=== PATIENT | female | born 1985 | race Caucasian/White ===

== ENCOUNTER 2017-03-26 07:00 | Day surgery (SDC) | payer BC ==
[2017-03-25 16:27] VITALS: BMI 28.3
[2017-03-26] MEDS ORDERED: LIDOCAINE HCL/PF 2% SDV 5ML VIAL ONE (07:41)
[2017-03-26] MEDS ORDERED: MIDAZOLAM HCL 2 MG/2 ML SINGLE DOSE VIAL ONE (07:42)
[2017-03-26] MEDS ORDERED: PROPOFOL 20 ML ONE (07:42)
[2017-03-26] MEDS ORDERED: IBUPROFEN 800 MG/8 ML IJ IVPB PRN (07:47)
[2017-03-26] MEDS ORDERED: oxyCODONE HCL 5 MG TABLET PO PRN ×2 (07:47→08:40)
[2017-03-26] MEDS ORDERED: ONDANSETRON 4 MG/2 ML VIAL IVPUSH PRN (07:47)
[2017-03-26] MEDS ORDERED: LEVOFLOXACIN 500 MG PREMIX BAG IVPB ONE (07:58)
[2017-03-26] MEDS ORDERED: LACTATED RINGERS SOLUTION 1,000 ML IV SCH (08:00)
[2017-03-26] MEDS ORDERED: LEVOFLOXACIN 500 MG IVPB 500 MG/100 ML BAG IVPB ONE (08:06)
--- NOTE | 2017-03-26 08:43 | OP ---
Operative Note - Note: Operative Date: 03/26/17 Pre-Operative Diagnosis: rt UVJ stone Operation: cysto/retrograde/rt ureteroscopy/ureteral dilation/stent placement Findings: stricture rt distal ureter and rt UPJ stenosis Post-Operative Diagnosis: Other Surgeon: Francisco Javier Engel Anesthesiologist/PORTABLE MACHINE CUTTER: Jessica Gomez Anesthesia: General Estimated Blood Loss (mls): 0 Drains & Tubes with Location: 7fr, 24cm stent Operative Report Dictated: Yes
[2017-03-26] MEDS ORDERED: ELECTROLYTE-148 SOLN 1,000 ML IV SCH (08:45)
--- NOTE | 2017-03-26 09:53 | OP ---
DATE OF OPERATION: DATE OF DICTATION: 03/26/2017 PREOPERATIVE DIAGNOSIS: Right distal ureteral stone. 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 PROCEDURE PERFORMED: Cystoscopy, retrograde pyelogram, ureteroscopy, ureteral dilation and stent placement. SURGEON: Francisco Javier Engel MD INDICATIONS: The patient is a 32-year-old female with persistent right hydronephrosis secondary to a possible right distal ureteral stone on CT scan. She was taken to the OR for diagnostic ureteroscopy and treatment. The risks, benefits and alternatives were discussed. DESCRIPTION OF PROCEDURE: After informed consent was obtained, the patient was taken to the OR and placed supine on the table. After cardiac monitoring was administered, general anesthesia was established. She was prepped and draped in the dorsal lithotomy position. The 22 sheath and cystoscope were inserted without difficulty. The urethra was normal. The bladder was visualized. No tumors or stones were noted in the bladder. Attention was turned to the right ureteral orifice. This was intubated with a ureteral catheter and contrast was injected for a retrograde pyelogram. There was moderate to severe hydronephrosis. No stone or filling defect was noted. A guidewire was advanced into the right renal pelvis. Alongside the guidewire, a rigid ureteroscope was advanced. The scope was advanced just into the ureterovesical junction area, at which point the ureter was narrowed. Then the scope was gently maneuvered to bypass the narrowing, thereby stretching the ureter. In the strictured ureteral area, however, no stone was noted. The scope was then advanced to the mid-ureter and no other stone was seen. At this point the rigid ureteroscope was removed. A second guidewire was advanced, and over the second guidewire a flexible ureteroscope was advanced into the kidney. The kidney was inspected. It was moderately to severely dilated. No stones were noted in the kidney. When the flexible ureteroscope was being drawn out of the collecting system, right at the UPJ there was a stenotic ureter, indicating stricture at both the UPJ area and the UVJ area. Again, the entire ureter was inspected and no stones were noted. The ureteroscope was then removed and a 7-Mosotho 24-cm double pigtail stent was then advanced in a monorail fashion. Fluoroscopy confirmed the stent being in good position. The patient was then awoken from anesthesia and transferred to the recovery room in stable condition. There were no complications. Estimated blood loss was minimal. [place] SHIELDS/[id number]
[2017-03-26 10:27] VITALS: TEMP 98
[2017-03-26] MEDS ORDERED: oxyCODONE HCL 5 MG TABLET ONE (11:00)
[2017-03-26 12:40] VITALS: BP 133/91; PULSE 74
== END 2017-03-26 12:43 | disposition home or self-care (01) ==
LOC: JASU-SURG 07:00
PROVIDERS: ATTEND Urology
PROC: 0T768DZ Dilation of Right Ureter with Intraluminal Device, Via Natural or Artificial Opening Endoscopic (ICD-10-PCS; principal; 2017-03-26 07:30)
PROC: 0T768DZ Dilation of Right Ureter with Intraluminal Device, Via Natural or Artificial Opening Endoscopic (ICD-10-PCS; 2017-03-26 07:30)
DX: N13.5 Crossing vessel and stricture of ureter without hydronephrosis (principal)
CPT/HCPCS: 76000-TC; 84703; 94760

== ENCOUNTER 2017-12-04 02:06 | Emergency (ER) | payer BC, OTHER ==
[2017-12-04 02:19] VITALS: BP 124/80; PULSE 81; TEMP 98.4; BMI 26.5
[2017-12-04] MEDS ORDERED: SODIUM CHLORIDE 1,000 ML IV STA (02:59)
[2017-12-04 03:12] LABS: BASO % 1.4 % (0-2.0); EOS % 1.7 % (0-4.5); HEMOGLOBIN 12.8 GM/dL (10.7-15.3); LYMPH % 22.7 % (8-40); MCH 27.9 pg (25.7-33.7); MEAN CELL VOLUME 84.6 fl (80-96); MEAN PLT VOLUME 7.7 fl (7.5-11.1); MONO % 6.3 % (3.8-10.2); NEUT % 67.9 % (42.8-82.8); PLATELET COUNT 346 K/MM3 (134-434); RBC 4.61 M/mm3 (3.60-5.2); RDW 14.3 % (11.6-15.6); WHITE BLOOD COUNT 9.2 K/mm3 (4.0-10.0)
[2017-12-04] MEDS ORDERED: ACETAMINOPHEN 1000 MG/100 ML VIAL (NON FORMULARY) IVPB ONE (03:14)
--- NOTE | 2017-12-04 03:14 | PDOC ---
History of Present Illness - History of Present Illness Initial Comments: 12/04/17 03:35 The patient is a 32 year old female, with a significant past medical history of right lower extremity DVT (09/2017 on Xeralto), who presents to the emergency department with, 2 days of chest pain and shortness of breath. She describes her chest pain as gradual onset and pleuritic. She reports an associated headache which she took Tylenol with relief. She denies recent fevers, chills, or dizziness. She denies recent nausea, vomit , diarrhea or constipation. She denies recent dysuria, frequency, urgency or hematuria. Allergies: NKA Past surgical history Cholecystectomy. Social history: Nonsmoker. Denies EtOH use and recreational drug use. <Melba Montero - Last Filed: 12/04/17 06:15> - General History Source: Patient Exam Limitations: No Limitations <Maldonado Isaac - Last Filed: 12/04/17 06:48> - General Chief Complaint: Chest Pain Stated Complaint: CHEST PAIN Time Seen by Provider: 12/04/17 02:51 Past History <Melba Montero - Last Filed: 12/04/17 06:15> - Past Medical History Anemia: No Asthma: No Cancer: No COPD: No CHF: No GI Disorders: No Disorders: Yes (STONES) HTN: No Hypercholesterolemia: No Liver Disease: No Seizures: No Thyroid Disease: No - Surgical History Cholecystectomy: Yes - Immunization History Immunization Up to Date: Yes - Suicide/Smoking/Psychosocial Hx Smoking Status: No Smoking History: Unknown if ever smoked Have you smoked in the past 12 months: No Number of Cigarettes Smoked Daily: 0 Hx Alcohol Use: No Drug/Substance Use Hx: No Substance Use Type: None Hx Substance Use Treatment: No <Maldonado Isaac - Last Filed: 12/04/17 06:48> - Past Medical History Allergies/Adverse Reactions: Allergies Allergy/AdvReac Type Severity Reaction Status Date / Time No Known Allergies Allergy Verified 12/04/17 04:26 Home Medications: Ambulatory Orders Cyanocobalamin [Vitamin B12 -] 1,000 mcg PO DAILY 03/25/17 Naproxen 500 mg PO BID PRN #20 tablet 12/04/17 Review of Systems - Review of Systems Able to Perform ROS?: Yes Comments:: 12/04/17 03:37 GENERAL/CONSTITUTIONAL: No fever or chills. No weakness. HEAD, EYES, EARS, NOSE AND THROAT: No change in vision. No ear pain or discharge. No sore throat. +CARDIOVASCULAR: Chest pain and shortness of breath. RESPIRATORY: No cough, wheezing, or hemoptysis. GASTROINTESTINAL: No nausea, vomiting, diarrhea or constipation. GENITOURINARY: No dysuria, frequency, or change in urination. MUSCULOSKELETAL: No joint or muscle swelling or pain. No neck or back pain. SKIN: No rash NEUROLOGIC: No headache, vertigo, loss of consciousness, or change in strength/ sensation. ENDOCRINE: No increased thirst. No abnormal weight change. HEMATOLOGIC/LYMPHATIC: No anemia, easy bleeding, or history of blood clots. ALLERGIC/IMMUNOLOGIC: No hives or skin allergy. All Other Systems: Reviewed and Negative <Melba Montero - Last Filed: 12/04/17 06:15> *Physical Exam - Vital Signs Last Vital Signs Temp Pulse Resp BP Pulse Ox 98.4 F 81 20 124/80 99 12/04/17 02:15 12/04/17 02:15 12/04/17 02:15 12/04/17 02:15 12/04/17 02:15 - Physical Exam Comments: 12/04/17 03:44 GENERAL: Awake, alert, and fully oriented, in no acute distress HEAD: No signs of trauma EYES: PERRLA, EOMI, sclera anicteric, conjunctiva clear ENT: Auricles normal inspection, hearing grossly normal, nares patent, oropharynx clear without exudates. Moist mucosa NECK: Normal ROM, supple, no lymphadenopathy, JVD, or masses LUNGS: Breath sounds equal, clear to auscultation bilaterally. No wheezes, and no crackles HEART: Regular rate and rhythm, normal S1 and S2, no murmurs, rubs or gallops ABDOMEN: Soft, nontender, normoactive bowel sounds. No guarding, no rebound. No masses EXTREMITIES: Normal range of motion, no edema. No clubbing or cyanosis. No cords, erythema, or tenderness NEUROLOGICAL: Cranial nerves II through XII grossly intact. Normal speech, normal gait SKIN: Warm, Dry, normal turgor, no rashes or lesions noted. <Melba Montero - Last Filed: 12/04/17 06:15> - Vital Signs Last Vital Signs Temp Pulse Resp BP Pulse Ox 98.4 F 81 20 124/80 99 12/04/17 02:15 12/04/17 02:15 12/04/17 02:15 12/04/17 02:15 12/04/17 02:15 <Maldonado Isaac - Last Filed: 12/04/17 06:48> Heart Score/ECG Review #1 ECG reviewed & interpreted by me at: 02:15 12/04/17 03:18 NSR 77, incomplete RBBB, no std/vera, QTC 434 msec <Maldonado Isaac - Last Filed: 12/04/17 06:48> ED Treatment Course - LABORATORY CBC & Chemistry Diagram: 12/04/17 03:00 12/04/17 03:00 - ADDITIONAL ORDERS Additional order review: Laboratory Results 12/04/17 03:00 INR 1.34 H PTT (Actin FS) 34.0 12/04/17 03:00 RBC 4.61 MCV 84.6 MCHC 33.0 RDW 14.3 MPV 7.7 Neutrophils % 67.9 Lymphocytes % 22.7 D Monocytes % 6.3 Eosinophils % 1.7 Basophils % 1.4 - RADIOLOGY Radiograph Interpretation: 12/04/17 06:15 EXAM: CTA CHEST 1 cm nodule or nodular scar right lower lobe, advise followup. No pulmonary embolism. No aortic dissection or aneurysm. No pneumonia or pleural effusions. Anterior mediastinal soft tissue, probably thymic. Cholecystectomy. Read by: Елена Goyal M.D. <Melba Montero - Last Filed: 12/04/17 06:15> - LABORATORY CBC & Chemistry Diagram: 12/04/17 03:00 12/04/17 03:00 - RADIOLOGY Radiology Studies Ordered: Category Date Time Status CHEST CTA [CT] Stat CT Scan 12/04/17 02:58 Ordered <Maldonado Isaac - Last Filed: 12/04/17 06:48> Medical Decision Making - Medical Decision Making 12/04/17 03:12 A portion of this note was written by my scribe, under my supervision. Vital Signs Temp Pulse Resp BP Pulse Ox 98.4 F 81 20 124/80 99 12/04/17 02:15 12/04/17 02:15 12/04/17 02:15 12/04/17 02:15 12/04/17 02:15 32 year old female with history of RLE DVT on xarelto p/w chest pain and SOB since yesterday. Pt started to notice a difficult to describe chest pain with SOB. Not pleuritic. Denies fevers, chills, cough, vomiting. States that she's adherent to her xarelto. Denies nausea, vomiting, abdominal pain. States does not feel like acid reflux. Came in for an eval. Will need to r/o PE. CTA to r/o PE. Labs including troponin. Reassess. 12/04/17 06:37 CT shows: 1 cm nodule or nodular scar right lower lobe. no PE, no dissection, No pneumonia. 12/04/17 06:45 CBC, BMP 12/04/17 03:00 12/04/17 03:00 CMP Sodium 139 mmol/L (136-145) 12/04/17 03:00 Potassium 4.2 mmol/L (3.5-5.1) 12/04/17 03:00 Chloride 104 mmol/L (98-107) 12/04/17 03:00 Carbon Dioxide 29 mmol/L (21-32) 12/04/17 03:00 Anion Gap 6 (8-16) L 12/04/17 03:00 BUN 10 mg/dL (7-18) 12/04/17 03:00 Creatinine 0.8 mg/dL (0.55-1.02) 12/04/17 03:00 Creat Clearance w eGFR > 60 (>60) 12/04/17 03:00 Random Glucose 84 mg/dL (74-106) 12/04/17 03:00 Calcium 8.7 mg/dL (8.5-10.1) 12/04/17 03:00 Total Bilirubin 0.2 mg/dL (0.2-1.0) 12/04/17 03:00 AST 19 U/L (15-37) 12/04/17 03:00 ALT 22 U/L (12-78) 12/04/17 03:00 Alkaline Phosphatase 74 U/L (45-117) 12/04/17 03:00 Creatine Kinase 53 IU/L (26-192) 12/04/17 03:00 Troponin I < 0.02 ng/ml (0.00-0.05) 12/04/17 03:00 B-Natriuretic Peptide 66.03 pg/ml (5-125) 12/04/17 03:00 Total Protein 7.1 g/dl (6.4-8.2) 12/04/17 03:00 Albumin 3.5 g/dl (3.4-5.0) 12/04/17 03:00 Serum , Qual Negative 12/04/17 03:00 Pt feels reassurred. She was given a copy of her results. I advised her on the nodule and that she will likely need a follow up outpatient chest imaging with her doctor. Pt will take the results to her doctor. Will treat as atypical chest pain at the moment. <Maldonado Isaac - Last Filed: 12/04/17 06:48> *DC/Admit/Observation/Transfer - Attestations Scribe Attestion: 12/04/17 03:37 Documentation prepared by Melba Montero, acting as manager medical writing for Maldonado Isaac MD. <Melba Montero - Last Filed: 12/04/17 06:15> <Maldonado Isaac - Last Filed: 12/04/17 06:48> Diagnosis at time of Disposition: Atypical chest pain - Discharge Dispostion Disposition: HOME Condition at time of disposition: Stable - Prescriptions Prescriptions: Naproxen 500 mg PO BID PRN #20 tablet PRN Reason: Pain - Patient Instructions Printed Discharge Instructions: DI for Atypical Chest Pain Additional Instructions: Your CT scan shows no blood clot. However, there may be a small nodule in your right lung. Please give the copy of the CT results to your doctor. Your doctor should track this along with you. Take 500 mg naproxen every 12 hours as needed for pain. Please call your doctor and schedule a follow up appointment.
[2017-12-04] MEDS ORDERED: ACETAMINOPHEN INJECTION 100 ML IVPB ONE (03:26)
[2017-12-04 03:29] LABS: INR 1.34 (0.82-1.09)
[2017-12-04 03:38] LABS: ALBUMIN 3.5 g/dl (3.4-5.0); ANION GAP 6 (8-16); BILIRUBIN,TOTAL 0.2 mg/dL (0.2-1.0); BLOOD UREA NITROGEN 10 mg/dL (7-18); CALCIUM 8.7 mg/dL (8.5-10.1); CHLORIDE 104 mmol/L (98-107); CO2 29 mmol/L (21-32); CREATININE 0.8 mg/dL (0.55-1.02); GLUCOSE,RANDOM 84 mg/dL (74-106); POTASSIUM 4.2 mmol/L (3.5-5.1); SGOT/AST 19 U/L (15-37); SGPT/ALT 22 U/L (12-78); SODIUM 139 mmol/L (136-145); TOT PROT 7.1 g/dl (6.4-8.2)
[2017-12-04 03:41] LABS: ALK PHOS 74 U/L (45-117); N-TERMINAL BNP 66.03 pg/ml (5-125)
[2017-12-04] MEDS ORDERED: KETOROLAC TROMETHAMINE 15 MG/ML VIAL IVPUSH ONE (06:44)
[2017-12-04 06:52] LABS: PROTHROMBIN TIME (PATIENT) 15.1 SEC (9.7-13.0)
--- NOTE | 2017-12-06 10:42 | EKG ---
Test Reason : Blood Pressure : / mmHG Vent. Rate : 077 BPM Atrial Rate : 077 BPM P-R Int : 166 ms QRS Dur : 096 ms QT Int : 384 ms P-R-T Axes : 042 030 022 degrees QTc Int : 434 ms NORMAL SINUS RHYTHM INCOMPLETE RIGHT BUNDLE BRANCH BLOCK ABNORMAL ECG WHEN COMPARED WITH ECG OF 17-NOV-2016 10:10, INCOMPLETE RIGHT BUNDLE BRANCH BLOCK IS MORE EVIDENT Confirmed by AGUEDA WALLACE MD ([id number]) on 12/06/2017 10:42:10 AM Referred By: Confirmed By:AGUEDA WALLACE MD
== END 2017-12-04 07:22 | disposition home or self-care (01) ==
LOC: JER 02:06
PROC: 3E0337Z Introduction of Electrolytic and Water Balance Substance into Peripheral Vein, Percutaneous Approach (ICD-10-PCS; principal; 2017-12-04)
PROC: 3E033GC Introduction of Other Therapeutic Substance into Peripheral Vein, Percutaneous Approach (ICD-10-PCS; 2017-12-04)
DX: R07.9 Chest pain, unspecified (principal); Z86.718 Personal history of other venous thrombosis and embolism; Z79.01 Long term (current) use of anticoagulants
CPT/HCPCS: 36415; 71275-TC; 80053; 82550; 83880; 84484; 84703; 85025; 85610; 85730; 93005; 93010; 99284-25; J7030

== ENCOUNTER 2019-03-19 17:44 | Inpatient (IN) | payer BC, OTHER ==
--- NOTE | 2019-03-19 17:58 | PDOC ---
History of Present Illness - General Chief Complaint: SIRS, Suspected/Possible Stated Complaint: SENT BY URGENT CARE Time Seen by Provider: 03/19/19 17:58 History Source: Patient Exam Limitations: No Limitations - History of Present Illness Initial Comments: 34 year old female with PMH right ureter stricture, nephrolithiasis, right ureter stent (now removed), multiple UTIs sent to ED from urgent care today for right flank pain and fever x4-5 days. Pt reported nausea, vomiting. Pt has been taking Tylenol for fever/pain, but fever always returns, last took Tylenol around 1200 today. Pt reported she was prescribed Clindamycin over the phone by her OBGYN x4-5 days ago when she called to reported her symptoms, but her symptoms have not improved since starting the medication. Past History - Past Medical History Allergies/Adverse Reactions: Allergies Allergy/AdvReac Type Severity Reaction Status Date / Time Cephalosporins Allergy Verified 03/19/19 17:51 Penicillins Allergy Verified 03/19/19 17:51 Home Medications: Ambulatory Orders Aspirin [ASA -] 325 mg PO BID 03/20/19 Vitamin Tablet 1 tab PO DAILY 03/20/19 Anemia: No Asthma: No Cancer: No COPD: No CHF: No GI Disorders: No Disorders: Yes (STONES) HTN: No Hypercholesterolemia: No Liver Disease: No Seizures: No Thyroid Disease: No - Surgical History Cholecystectomy: Yes - Immunization History Immunization Up to Date: Yes - Psycho Social/Smoking Cessation Hx Smoking Status: No Smoking History: Never smoked Have you smoked in the past 12 months: No Number of Cigarettes Smoked Daily: 0 Hx Alcohol Use: No Drug/Substance Use Hx: No Substance Use Type: None Hx Substance Use Treatment: No Review of Systems - Review of Systems Able to Perform ROS?: Yes Comments:: ROS General: admitted to fever, generalized weakness. HEENT: denied sore throat, rhinorrhea, ear pain. Cardiovascular: denied chest pain, palpitations, syncope, diaphoresis. Respiratory: denied shortness of breath, cough, sputum production, hemoptysis. Gastrointestinal: denied abdominal pain, nausea, vomiting, diarrhea, constipation, blood in stool. Genitourinary: admitted to flank pain. denied dysuria, increased urinary frequency, hematuria, urinary incontinence. Back: denied back pain. Musculoskeletal: denied joint pain, muscle pain, joint swelling. Neurological: denied headache, dizziness, numbness, tingling, weakness. Integumentary: denied rash, laceration, abrasion. Hematologic/Lymphatic: denied bruising or bleeding. PE Constitutional: Well-nourished, Well-developed, appearing stated age. HEENT: head is normocephalic, atraumatic. EOMI. PERRLA. no posterior pharyngeal erythema.no tonsillar swelling or exudates bilaterally. uvula midline. no peritonsillar swelling, tenderness or abscess. no jaw tenderness or misalignment. Neck: supple. Full ROM. Cardiovascular: regular heart rhythm. no murmurs. no pericardial friction rub. Respiratory: clear to auscultation bilaterally. no crackles, rhonchi or wheezing. no stridor. Gastrointestinal: soft, nontender. normal bowel sounds. no rebound, guarding, masses. Back: no rash. negative CVA tenderness bilaterally. Extremities: peripheral pulses intact. no lower extremity edema. Neurological: CN 2-12 grossly intact. moves all four extremities. Psych: awake, alert, oriented x3. follows commands. answers questions appropriately. *Physical Exam - Vital Signs Last Vital Signs Temp Pulse Resp BP Pulse Ox 102.9 F H 111 H 18 135/81 99 03/19/19 17:47 03/19/19 17:47 03/19/19 17:47 03/19/19 17:47 03/19/19 17:47 ED Treatment Course - LABORATORY CBC & Chemistry Diagram: 03/22/19 08:36 03/22/19 08:36 Medical Decision Making - Medical Decision Making 34 year old female with above PMH sent to ED from Urgent Care for right flank pain associated with fever x4-5 days. Pt has been taking Clindamycin ( prescribed by OBGYN after phone call) without relief of symptoms. Initial Vital Signs Temp Pulse Resp BP Pulse Ox 102.9 F H 111 H 18 135/81 99 03/19/19 17:47 03/19/19 17:47 03/19/19 17:47 03/19/19 17:47 03/19/19 17:47 Febrile. Tachycardic. No tachypnea. No hypotension. No hypoxia on room air. Labs ordered: CBC, CMP, Mag, Phos, Serum , UA/UC, Imaging ordered: CT abdomen/pelvis with IV contrast Medications ordered: tylenol IV, normal saline bolus 1000 cc once EKG performed at CXR my view: sharp costophrenic angles. no cardiomegaly. no infiltrate. -Pending official report 03/19/19 18:53 Laboratory Results - last 24 hr 03/19/19 03/19/19 03/19/19 18:26 18:26 18:26 WBC 8.0 RBC 4.62 Hgb 12.5 Hct 38.0 MCV 82.1 MCH 27.0 MCHC 32.9 RDW 14.4 Plt Count 300 MPV 7.9 Absolute Neuts (auto) 6.5 Neutrophils % 80.7 Lymphocytes % 9.6 D Monocytes % 8.7 Eosinophils % 0.4 Basophils % 0.6 Nucleated RBC % 0 PT with INR 12.30 INR 1.04 VBG pH 7.40 POC VBG pCO2 36.3 L POC VBG pO2 50.1 H VBG HCO3 22.3 L VBG O2 Sat (Pipe) 84.9 H VBG Base Excess -1.4 No leuckocytosis. No anemia. No acidosis. 03/19/19 19:45 CMP Sodium 134 mmol/L (136-145) L 03/19/19 18:26 Potassium 3.5 mmol/L (3.5-5.1) 03/19/19 18:26 Chloride 103 mmol/L (98-107) 03/19/19 18:26 Carbon Dioxide 23 mmol/L (21-32) 03/19/19 18:26 Anion Gap 9 MMOL/L (8-16) 03/19/19 18:26 BUN 15.7 mg/dL (7-18) 03/19/19 18:26 Creatinine 1.0 mg/dL (0.55-1.3) 03/19/19 18:26 Est GFR (CKD-EPI)AfAm 84.53 03/19/19 18:26 Est GFR (CKD-EPI)NonAf 72.93 03/19/19 18:26 Random Glucose 86 mg/dL (74-106) 03/19/19 18:26 Lactic Acid 1.0 mmol/L (0.4-2.0) 03/19/19 18:26 Calcium 8.8 mg/dL (8.5-10.1) 03/19/19 18:26 Phosphorus 2.3 mg/dL (2.5-4.9) L 03/19/19 18:26 Magnesium 2.0 mg/dL (1.8-2.4) 03/19/19 18:26 Total Bilirubin 0.6 mg/dL (0.2-1) 03/19/19 18:26 AST 12 U/L (15-37) L 03/19/19 18:26 ALT 17 U/L (13-61) 03/19/19 18:26 Alkaline Phosphatase 73 U/L (45-117) 03/19/19 18:26 Total Protein 6.7 g/dl (6.4-8.2) 03/19/19 18:26 Albumin 3.0 g/dl (3.4-5.0) L 03/19/19 18:26 Serum , Qual Negative 03/19/19 18:26 Mild hyponatremia - IVF running. Mild hypophos. No lactic acidosis. No ROSEMARIE. Serum negative. Vital Signs Temperature 102.9 F H 03/19/19 17:47 Pulse Rate 88 03/19/19 19:34 Respiratory Rate 18 03/19/19 19:34 Blood Pressure 107/73 03/19/19 19:34 O2 Sat by Pulse Oximetry (%) 98 03/19/19 19:34 Tachycardia resolved with Tylenol and IVF hydration. Hypertension improved. 03/19/19 20:01 03/19/19 20:05 CT reported pt has contrast allergy - reported has had contrast multiple times and each time she gets a more intense rash. She is refusing the contrast. CT abdomen/pelvis without contrast ordered. 03/19/19 20:34 Urine Test Results Urine Color Yellow 03/19/19 19:28 Urine Appearance Turbid 03/19/19 19:28 Urine pH 6.0 (5.0-8.0) 03/19/19 19:28 Ur Specific [place] 1.031 (1.010-1.035) 03/19/19 19:28 Urine Protein 4+ (NEGATIVE) H 03/19/19 19:28 Urine Glucose (UA) Negative (NEGATIVE) 03/19/19 19:28 Urine Ketones 2+ (NEGATIVE) H 03/19/19 19:28 Urine Blood 3+ (NEGATIVE) H 03/19/19 19:28 Urine Nitrite Negative (NEGATIVE) 03/19/19 19: Urine Bilirubin Negative (NEGATIVE) 03/19/19 19:28 Ur Leukocyte Esterase 2+ (NEGATIVE) H 03/19/19 19:28 WBC>900 Medications ordered: Cipro [address] report: Name: [facility] DEPARTMENT OF RADIOLOGY Phys: Sarika García RESIDENT : [id number] Age: 34 Sex: F [facility] Acct: [id number] Loc: [address] Exam Date: 03/19/19 Status: [place] [address] Unit Number: [id number] EXAM#: TYPE/EXAM: RESULT: [id number] CT/ABDOMEN PELVIS CT W/O CONTR Clinical history: 34-year-old woman with right flank and right lower quadrant pain for 4 days. Nausea and vomiting. Rule out stone disease. Comparison: 03/12/2017. Contiguous transaxial images were obtained from the diaphragmatic domes and pubic symphysis without the administration of oral and IV contrast as a Stone protocol. Sagittal and coronal reconstructions were performed. Lung bases: Atelectatic changes and small posterior right effusion.. Bone: Negative. Liver: Hepatomegaly. Gallbladder: Cholecystectomy. Biliary tree: Negative. Spleen: Splenomegaly. Pancreas: Negative. Adrenals: Negative. Kidneys: The right kidney shows mild atrophy, perirenal stranding and moderately severe hydronephrosis and dilated renal pelvis which is increased compared to the prior study. There is a hydroureter which extends to a possible but not definitive 4.4 mm distal right ureteral stone. Multiple other calcifications are seen in the pelvis which probably are phleboliths in including some which were seen on prior study. The left kidney is negative. Pelvis: Cystic changes in the left ischio rectal fossa as previously. Bowel: Moderately severe retention of stool. Appendix not definitively seen but no inflammatory changes identified in the right lower quadrant. Other: Small hiatal hernia. Small umbilical hernia with fat. Impression: Significantly increased right hydronephrosis post on probable right chronic UPJ obstruction with possible but not definitive stone in the distal ureter. There are multiple other calcifications in the pelvis which likely phleboliths. Other findings as above. Clinical correlation advised. The study was initially read by Gregoryhawjaciel. Reported By: Francisco Javier Mas MD 03/20/19 1203 Pt to be admitted for obstructive uropathy resulting in UTI. 03/22/19 12:49 Discharge - Discharge Information Problems reviewed: Yes Clinical Impression/Diagnosis: Obstructive uropathy, UTI (urinary tract infection) Condition: Stable - Admission Yes - Follow up/Referral - Patient Discharge Instructions - Post Discharge Activity
[2019-03-19] MEDS ORDERED: SODIUM CHLORIDE 1,000 ML IV STA ×2 (18:00→22:26)
[2019-03-19] MEDS ORDERED: ACETAMINOPHEN 1000 MG/100 ML VIAL (NON FORMULARY) IVPB ONE (18:00)
[2019-03-19] MEDS ORDERED: ACETAMINOPHEN INJECTION 100 ML IVPB ONE (18:17)
[2019-03-19 18:46] LABS: BASO % 0.6 % (0-2.0); EOS % 0.4 % (0-4.5); HEMOGLOBIN 12.5 GM/dL (10.7-15.3); LYMPH % 9.6 % (8-40); MCHC 32.9 g/dl (32.0-36.0); MEAN CELL VOLUME 82.1 fl (80-96); MEAN PLT VOLUME 7.9 fl (7.5-11.1); MONO % 8.7 % (3.8-10.2); NEUT % 80.7 % (42.8-82.8); PLATELET COUNT 300 K/MM3 (134-434); RBC 4.62 M/mm3 (3.60-5.2); RDW 14.4 % (11.6-15.6)
[2019-03-19 18:51] LABS: INR 1.04 (0.83-1.09); PROTHROMBIN TIME (PATIENT) 12.3 SEC (9.7-13.0)
[2019-03-19 18:52] LABS: VENOUS PC02 36.3 mmHg (38-52); VENOUS PH 7.4 (7.31-7.41); VENOUS PO2 50.1 mmHg (28-48)
[2019-03-19 18:54] LABS: ACTIVATED PTT 33.5 SECONDS (25.2-36.5)
[2019-03-19 19:17] LABS: PHOSPHOROUS 2.3 mg/dL (2.5-4.9)
[2019-03-19 19:19] LABS: BILIRUBIN,TOTAL 0.6 mg/dL (0.2-1); BLOOD UREA NITROGEN 15.7 mg/dL (7-18); CALCIUM 8.8 mg/dL (8.5-10.1); POTASSIUM 3.5 mmol/L (3.5-5.1); TOT PROT 6.7 g/dl (6.4-8.2)
[2019-03-19 19:56] LABS: EPI CELLS 2.1 /HPF (0-5/HPF); HYALINE CASTS 12 /lpf (0-8); URINE APPEARANCE TURBID; URINE BACTERIA 14.5 /hpf (NEGATIVE); URINE BILIRUBIN NEGATIVE (NEGATIVE); URINE COLOR YELLOW; URINE GLUCOSE (UA) NEGATIVE (NEGATIVE); URINE KETONE 2+ (NEGATIVE); URINE LEUK ESTERASE 2+ (NEGATIVE); URINE NITRITE NEGATIVE (NEGATIVE); URINE PROTEIN 4+ (NEGATIVE); URINE WBC 917 /hpf (0-5)
[2019-03-19] MEDS ORDERED: CIPROFLOXACIN 400 MG/D5W 400 MG/200 ML IVPB IVPB ONE (20:32)
[2019-03-19 20:36] LABS: URINE RBC 95.1 /hpf (0-4); YEAST NONE SEEN (NEGATIVE)
--- NOTE | 2019-03-19 20:49 | PDOC ---
Documentation entered by Sara Napier SCRIBE, acting as scribe for Jose Holland MD. Jose Holland MD: This documentation has been prepared by the amiibe, Sara Napier SCRIBE, under my direction and personally reviewed by me in its entirety. I confirm that the documentation accurately reflects all work, treatment, procedures, and medical decision making performed by me. Attending Attestation - Resident Resident Name: Sarika García - ED Attending Attestation I have performed the following: I have examined & evaluated the patient, The case was reviewed & discussed with the resident, I agree w/resident's findings & plan, Exceptions are as noted - HPI HPI: 03/19/19 20:25 34 F with h/o R ureteral stricture, kidney stones, UTIs, presenting to ED with R flank pain and fever. Pt reports 4-5 days of symptoms. Endorses pain radiating from R flank around her side. Denies abdominal pain. Endorses N/V. Denies vaginal discharge/bleeding. - Physicial Exam PE: 03/19/19 20:26 "GENERAL: Awake, alert, and fully oriented, in no acute distress. HEAD: No signs of trauma EYES: PERRLA, EOMI, sclera anicteric, conjunctiva clear ENT: Auricles normal inspection, hearing grossly normal, nares patent, oropharynx clear without exudates. Moist mucosa NECK: Nontender, no stepoffs, Normal ROM, supple, no lymphadenopathy, JVD, or masses LUNGS: Breath sounds equal, clear to auscultation bilaterally. No wheezes, and no crackles HEART: Regular rate and rhythm, normal S1 and S2, no murmurs, rubs or gallops ABDOMEN: Soft, nontender, normoactive bowel sounds. No guarding, no rebound. No masses EXTREMITIES: Normal range of motion, no edema. No clubbing or cyanosis. No cords, erythema, or tenderness NEUROLOGICAL: Cranial nerves II through XII intact. 5/5 strength and sensation in all extremities, Normal speech, normal gait, normal cerebellar function SKIN: Warm, Dry, normal turgor, no rashes or lesions noted. BACK: + R CVAT - Medical Decision Making 03/19/19 20:28 34 F with fevers, R flank pain. Suspect pyelo. Will also r/o infected stone. - Labs, UA - CTAP - IVF, tylenol 03/19/19 21:50 Labs consistent with UTI CT shows severe R pyelo with periureteral stranding. Possible 7mm stone per IOC read. Pt started on cipro (pen and ceph allergy) Will admit for uro eval
[2019-03-19] MEDS ORDERED: KETOROLAC TROMETHAMINE 30 MG/1 ML VIAL IVPUSH ONE (22:26)
[2019-03-19] MEDS ORDERED: TAMSULOSIN HCL 0.4 MG CAP PO ONE (22:26)
--- NOTE | 2019-03-19 22:43 | PN ---
Teaching Attending Note Name of Resident: Judith Baldwin ATTENDING PHYSICIAN STATEMENT I saw and evaluated the patient. I reviewed the resident's note and discussed the case with the resident. I agree with the resident's findings and plan as documented. SUBJECTIVE: Patient is a 34 year old woman who is 8 weeks and breast feeding, with a PMH of Right ureter stricture, Penicillin allergy, LLE DVT, Nephrolithiasis (prior lithotripsy), Right ureter stent (now removed), and Multiple UTIs sent to ER from Urgent Care today for right flank pain and fever for 4-5 days. Has nausea, constipation and vomiting and has been on Clindamycin for a few days. Has been taking Tylenol for fever/pain, but fever always returns. Last took Tylenol around 1200 today. Denies abnormal vaginal discharge or bleeding. Denies tobacco use, alcohol or illicit drug use. Was on Xarelto for DVT before her , but is now just on Aspirin pending followup with her fretted instruments inspector. OBJECTIVE: Alert Vital Signs Period Temp Pulse Resp BP Sys/Philippe Pulse Ox Last 24 Hr 102.9 F 88-111 18-18 107-135/73-81 98-99 HEENT: No Jaundice, eye redness or discharge, PERRLA, EOMI. Normocephalic, atraumatic. External ears are normal and hearing is grossly intact. No nasal discharge. Neck: Supple, nontender. No palpable adenopathy or thyromegaly. No JVD Chest: Good effort. Clear to auscultation and percussion. Heart: Regular. No S3, rub or murmur Abdomen: Not distended, soft, Right CVAT; RUQ tenderness; no HSM. No rebound or guarding. Normal bowel sounds. Ext: Peripheral pulses intact. No leg edema. Skin: Warm and dry. No petechiae, rash or ecchymosis. Neuro: Alert. Oriented x3. CN 2-12 grossly intact. Sensation grossly intact in all four extremities and DTR are symmetric. Psych: Appropriate mood and affect. Good insight. Current Medications Generic Name Dose Route Start Last Admin Trade Name Freq PRN Reason Stop Dose Admin Sodium Chloride 1,000 mls @ 1,000 mls/hr 03/19/19 22:26 Normal Saline - IV 03/19/19 23:25 ASDIR STA Home Medications Medication Instructions Recorded Cyanocobalamin [Vitamin B12 -] 1,000 mcg PO DAILY 03/25/17 Dabigatran Etexilate Mesylate 75 mg PO ONCE 12/04/17 [Pradaxa -] Naproxen 500 mg PO BID PRN #20 tablet 12/04/17 Abnormal Lab Results 03/19/19 03/19/19 03/19/19 18:26 18:26 18:26 POC VBG pCO2 36.3 L POC VBG pO2 50.1 H VBG HCO3 22.3 L VBG O2 Sat (Pipe) 84.9 H Sodium 134 L Phosphorus 2.3 L AST 12 L Albumin 3.0 L Urine Protein Urine Ketones Urine Blood Ur Leukocyte Esterase 03/19/19 19:28 POC VBG pCO2 POC VBG pO2 VBG HCO3 VBG O2 Sat (Pipe) Sodium Phosphorus AST Albumin Urine Protein 4+ H Urine Ketones 2+ H Urine Blood 3+ H Ur Leukocyte Esterase 2+ H ASSESSMENT AND PLAN: 1. Sepsis due to Pyelonephritis - CT abdomen and pelvis show severe pyelonephritis, right hydronephrosis and ureteral stone. Sepsis workup done and will treat with IV meropenem pending culture results. Continue IV NS, Flomax, monitor urine output and strain her urine. Using tylenol and toradol for pain control. Hypophosphatemia is unexplained. Will check PTH level and treat with neutraphos. Urology being consulted. Refer for outpatient workup to search for stone disease risk factor. Will continue comprehensive care for all of patient s comorbid conditions. 2. Hypoalbuminemia - Possibly due to combined effects of proteinuria, malnutrition and inflammation associated with comorbid chronic conditions. Will ensure adequate dietary protein intake and also consult parachute supervisor. 3. Obesity Counseled on the risks associated with obesity. Will provide patient all the necessary assistance, counseling and positive reinforcement to facilitate weight loss. Consult parachute supervisor. 4. DVT prophylaxis - SCD 5. Advance directives - Full code
[2019-03-19] MEDS ORDERED: KETOROLAC TROMETHAMINE 30 MG/1 ML VIAL ONE (22:46)
[2019-03-19] MEDS ORDERED: TAMSULOSIN HCL 0.4 MG CAP ONE (22:46)
[2019-03-20] MEDS ORDERED: KETOROLAC TROMETHAMINE 15 MG/ML VIAL IVPUSH PRN (00:06)
--- NOTE | 2019-03-20 00:51 | HP ---
CHIEF COMPLAINT: R sided flank pain PCP: Dr. Gong HISTORY OF PRESENT ILLNESS: Pt is a 34 y/o F 8 weeks w/ pmhx of R ureter stricture, Nephrolithiasis, multiple UTIs, R ureter stent placement and removal, presenting to ED complaining of R flank pain, fever, nausea and vomiting beginning on . Pt rates pain as 9/10. Pt reports after symptoms onset on she called her OBGYN, Dr. Gong, which advised the pt to take Clindamycin. Today, symptoms worsened and pt went to an urgent care center who advised patient to go to ED for evaluation. Pt denies chest pain, diarrhea, or urinary changes. Pt does have a chronic history of constipation and also endorses decreased appetite/ nausea/ vomiting/ and feeling febrile since t= . Nothing improved or worsened symptoms. We asked the pt to explain why she had been prescribed Pradaxa. The patient stated she did not thin that she ever took that medication but did say that in 2017, she had a blood clot for which she was started on Xarelto. Pt was on OCP at the time. When she became the Xarelto was discontinued and Aspirin was started. After giving , pt was suppose to start on Levonox but she has not yet been back to her hemotologist, Dr. Sow, so she continued on Aspirin. ER course was notable for: (1) EKG unchanged since previous visit, QTc 430 (2) Cipro 400mg Given (3) 2L NS given Recent Travel: denies PAST MEDICAL HISTORY: Nephrolithiasis, multiple UTIs, R ureter stent placement and removal, PAST SURGICAL HISTORY: Lithotripsy x2; Stent (2017, but removed); Cholecystectomy Social History: Smoking: denies Alcohol: socially Drugs: denies Occupation; [employer] commanding officer Residence: pt lives with her kids Fhx: Mother: HTN; Hx of blood clots; Father: none Allergies: Penicillin/ Cephalosporin, Rx rash, hives and Dyspnea; Constast Dye , Rx rash, burning Cephalosporins Allergy (Verified 03/19/19 17:51) Penicillins Allergy (Verified 03/19/19 17:51) HOME MEDICATIONS: Home Medications Medication Instructions Recorded Cyanocobalamin [Vitamin B12 -] 1,000 mcg PO DAILY 03/25/17 Dabigatran Etexilate Mesylate 75 mg PO ONCE 12/04/17 [Pradaxa -] Naproxen 500 mg PO BID PRN #20 tablet 12/04/17 REVIEW OF SYSTEMS CONSTITUTIONAL: fever, generalized weakness Absent: chills, diaphoresis, malaise, loss of appetite, weight change HEENT: Absent: rhinorrhea, nasal congestion, throat pain, throat swelling, difficulty swallowing, mouth swelling, ear pain, eye pain, visual changes CARDIOVASCULAR: Absent: chest pain, syncope, palpitations, irregular heart rate, lightheadedness , peripheral edema RESPIRATORY: Absent: cough, shortness of breath, dyspnea with exertion, orthopnea, wheezing, stridor, hemoptysis GASTROINTESTINAL: constipation- chronic Absent: abdominal pain, abdominal distension, nausea, vomiting, diarrhea, melena, hematochezia GENITOURINARY: flank pain Absent: dysuria, frequency, urgency, hesitancy, hematuria, genital pain MUSCULOSKELETAL: Absent: myalgia, arthralgia, joint swelling, back pain, neck pain SKIN: Absent: rash, itching, pallor HEMATOLOGIC/IMMUNOLOGIC: Absent: easy bleeding, easy bruising, lymphadenopathy, frequent infections ENDOCRINE: Absent: unexplained weight gain, unexplained weight loss, heat intolerance, cold intolerance NEUROLOGIC: Absent: headache, focal weakness or paresthesias, dizziness, unsteady gait, seizure, mental status changes, bladder or bowel incontinence PSYCHIATRIC: Absent: anxiety, depression, suicidal or homicidal ideation, hallucinations. PHYSICAL EXAMINATION Vital Signs - 24 hr 03/19/19 03/19/19 17:47 19:34 Temperature 102.9 F H Pulse Rate 111 H Pulse Rate [ 88 Apical] Respiratory 18 18 Rate Blood Pressure 135/81 Blood Pressure 107/73 [Left Arm] O2 Sat by Pulse 99 98 Oximetry (%) GENERAL: Awake, alert, and fully oriented, in no acute distress. HEAD: Normal with no signs of trauma. EYES: Pupils equal, round and reactive to light, extraocular movements intact, sclera anicteric, conjunctiva clear. No lid lag. EARS, NOSE, THROAT: Ears normal, nares patent, oropharynx clear without exudates. Moist mucous membranes. NECK: Normal range of motion, supple without lymphadenopathy, JVD, or masses. LUNGS: Breath sounds equal, clear to auscultation bilaterally. No wheezes, and no crackles. No accessory muscle use. HEART: Regular rhythm, tachycardic, normal S1 and S2 without murmur. ABDOMEN: Soft, mild TTP on the R side, not distended, normoactive bowel sounds, no guarding, no rebound, no masses. MUSCULOSKELETAL: Normal range of motion at all joints. No bony deformities or tenderness. + CVA tenderness. UPPER EXTREMITIES: 2+ pulses, warm, well-perfused. No cyanosis. No clubbing. No peripheral edema. LOWER EXTREMITIES: 2+ pulses, warm, well-perfused. No calf tenderness. No peripheral edema. NEUROLOGICAL: Cranial nerves II-XII intact. Normal speech. PSYCHIATRIC: Cooperative. Good eye contact. Appropriate mood and affect. SKIN: Warm, dry, normal turgor, no rashes or lesions noted, normal capillary refill. Laboratory Results - last 24 hr 03/19/19 03/19/19 03/19/19 18:26 18:26 18:26 WBC RBC Hgb Hct MCV MCH MCHC RDW Plt Count MPV Absolute Neuts (auto) Neutrophils % Lymphocytes % Monocytes % Eosinophils % Basophils % Nucleated RBC % PT with INR 12.30 INR 1.04 PTT (Actin FS) 33.5 VBG pH 7.40 POC VBG pCO2 36.3 L POC VBG pO2 50.1 H VBG HCO3 22.3 L VBG O2 Sat (Pipe) 84.9 H VBG Base Excess -1.4 Sodium Potassium Chloride Carbon Dioxide Anion Gap BUN Creatinine Est GFR (CKD-EPI)AfAm Est GFR (CKD-EPI)NonAf Random Glucose Lactic Acid 1.0 Calcium Phosphorus Magnesium Total Bilirubin AST ALT Alkaline Phosphatase Total Protein Albumin Serum , Qual Urine Color Urine Appearance Urine pH Ur Specific Thomas Urine Protein Urine Glucose (UA) Urine Ketones Urine Blood Urine Nitrite Urine Bilirubin Urine Urobilinogen Ur Leukocyte Esterase Urine WBC (Auto) Urine RBC (Auto) Urine Casts (Auto) U Epithel Cells (Auto) Urine Bacteria (Auto) Urine Yeast (Auto) 03/19/19 03/19/19 03/19/19 18:26 18:26 18:26 WBC 8.0 RBC 4.62 Hgb 12.5 Hct 38.0 MCV 82.1 MCH 27.0 MCHC 32.9 RDW 14.4 Plt Count 300 MPV 7.9 Absolute Neuts (auto) 6.5 Neutrophils % 80.7 Lymphocytes % 9.6 D Monocytes % 8.7 Eosinophils % 0.4 Basophils % 0.6 Nucleated RBC % 0 PT with INR INR PTT (Actin FS) VBG pH POC VBG pCO2 POC VBG pO2 VBG HCO3 VBG O2 Sat (Pipe) VBG Base Excess Sodium 134 L Potassium 3.5 Chloride 103 Carbon Dioxide 23 Anion Gap 9 BUN 15.7 Creatinine 1.0 Est GFR (CKD-EPI)AfAm 84.53 Est GFR (CKD-EPI)NonAf 72.93 Random Glucose 86 Lactic Acid Calcium 8.8 Phosphorus 2.3 L Magnesium 2.0 Total Bilirubin 0.6 AST 12 L ALT 17 Alkaline Phosphatase 73 Total Protein 6.7 Albumin 3.0 L Serum , Qual Urine Color Urine Appearance Urine pH Ur Specific Thomas Urine Protein Urine Glucose (UA) Urine Ketones Urine Blood Urine Nitrite Urine Bilirubin Urine Urobilinogen Ur Leukocyte Esterase Urine WBC (Auto) Urine RBC (Auto) Urine Casts (Auto) U Epithel Cells (Auto) Urine Bacteria (Auto) Urine Yeast (Auto) 03/19/19 03/19/19 18:26 19:28 WBC RBC Hgb Hct MCV MCH MCHC RDW Plt Count MPV Absolute Neuts (auto) Neutrophils % Lymphocytes % Monocytes % Eosinophils % Basophils % Nucleated RBC % PT with INR INR PTT (Actin FS) VBG pH POC VBG pCO2 POC VBG pO2 VBG HCO3 VBG O2 Sat (Pipe) VBG Base Excess Sodium Potassium Chloride Carbon Dioxide Anion Gap BUN Creatinine Est GFR (CKD-EPI)AfAm Est GFR (CKD-EPI)NonAf Random Glucose Lactic Acid Calcium Phosphorus Magnesium Total Bilirubin AST ALT Alkaline Phosphatase Total Protein Albumin Serum , Qual Negative Urine Color Yellow Urine Appearance Turbid Urine pH 6.0 Ur Specific Thomas 1.031 Urine Protein 4+ H Urine Glucose (UA) Negative Urine Ketones 2+ H Urine Blood 3+ H Urine Nitrite Negative Urine Bilirubin Negative Urine Urobilinogen 1.0 Ur Leukocyte Esterase 2+ H Urine WBC (Auto) 917 Urine RBC (Auto) 95.1 Urine Casts (Auto) 12 U Epithel Cells (Auto) 2.1 Urine Bacteria (Auto) 14.5 Urine Yeast (Auto) None seen ASSESSMENT/PLAN: Pt is a 34 y/o F 8 weeks w/ pmhx of R ureter stricture, Nephrolithiasis, multiple UTIs, R ureter stent placement and removal, presenting to ED complaining of R flank pain, fever, nausea and vomiting beginning on . #Sepsis 2/2 Pyelonephritis- Pt was tachycardic to 111 and febrile to 102.9, UA showing 2+LE, 917 WBC, and 14.[address] abdomen and pelvis show severe pyelonephritis, right hydronephrosis and ureteral stone. - IV Aztreonam 2g TID - ID consultedm Dr. Morgan, appreciate recommendations - IV NS @100cc.h - Flomax 0.4mg daily - f/u blood and urine cx - monitor urine output and strain her urine - Tylenol and toradol for pain control. - Urology consulted, Dr. Engel, appreciate recommendations - Refer for outpatient workup to search for stone disease risk factor. - Continuing home ASA 81, however will hold if patient is to go for urologic procedure # Hypophosphatemia - unexplained. - Check PTH level - treat with neutraphos. # Hypoalbuminemia Possibly due to combined effects of proteinuria, malnutrition and inflammation associated with comorbid chronic conditions. - ensure adequate dietary protein intake and also consult pearl glue drier. #FEN - Na controlled diet - replete PRN - NS @100cc/h #DVT ppx - SCDs until it is decided whether pt is to go for urologic procedure Dispo- admit to med-surg, full code Visit type - Emergency Visit Emergency Visit: Yes ED Registration Date: 03/19/19 Care time: The patient presented to the Emergency Department on the above date and was hospitalized for further evaluation of their emergent condition. - New Patient This patient is new to me today: Yes Date on this admission: 03/20/19 - Critical Care Critical Care patient: No ATTENDING PHYSICIAN STATEMENT I saw and evaluated the patient. I reviewed the resident's note and discussed the case with the resident. I agree with the resident's findings and plan as documented. SUBJECTIVE: OBJECTIVE: ASSESSMENT AND PLAN:
[2019-03-20] MEDS: SODIUM CHLORIDE 1,000 ML IV SCH ×2 (00:59→09:31)
[2019-03-20] MEDS ORDERED: MEROPENEM 1 GM in DEXTROSE 5%-WATER 100 ML IVPB SCH (02:00)
[2019-03-20] MEDS: AZTREONAM 2 GM in DEXTROSE 5%-WATER 100 ML IVPB SCH ×3 (03:56→19:15)
[2019-03-20 05:01] VITALS: BMI 33.4
[2019-03-20] MEDS ORDERED: AZTREONAM 1 GM VIAL (RESTRICTED TO ID) IVPB SCH (06:00)
[2019-03-20] MEDS: NAPH,MB-DB/K PH,MBDB POWDER PACKET PO SCH ×3 (06:18→22:32)
[2019-03-20] MEDS: TAMSULOSIN HCL 0.4 MG CAP PO SCH (08:29)
[2019-03-20] MEDS ORDERED: PT OWN MED DRAWER 7, Y5N ONE ×2 (09:25→18:02)
[2019-03-20] MEDS: ACETAMINOPHEN 325 MG TABLET (FP) PO PRN ×2 (09:28→22:33)
[2019-03-20] MEDS ORDERED: CIPROFLOXACIN 400 MG/D5W 400 MG/200 ML IVPB IVPB SCH (10:00)
--- NOTE | 2019-03-20 10:05 | EKG ---
Test Reason : Blood Pressure : / mmHG Vent. Rate : 105 BPM Atrial Rate : 105 BPM P-R Int : 152 ms QRS Dur : 096 ms QT Int : 326 ms P-R-T Axes : 028 005 004 degrees QTc Int : 430 ms SINUS TACHYCARDIA POSSIBLE LEFT ATRIAL ENLARGEMENT INCOMPLETE RIGHT BUNDLE BRANCH BLOCK ABNORMAL ECG WHEN COMPARED WITH ECG OF 04-DEC-2017 02:13, NO SIGNIFICANT CHANGE WAS FOUND Confirmed by AGUEDA WALLACE MD ([id number]) on 03/20/2019 10:05:16 AM Referred By: Confirmed By:AGUEDA WALLACE MD
[2019-03-20] MEDS: ASPIRIN COATED 81 MG TABLET.EC PO SCH (11:13)
--- NOTE | 2019-03-20 12:01 | PN ---
Progress Note (short form) - Note Progress Note: HPI: Briefly pt here with R flank pain 2/2 to pyelonephritis and obstructive UVJ 7mm nephrolith. Pt today reports chills and fevers throughout the night. Pt without any dysuria or polyuria. Reports darker urine. Pt still has flank pain persisting on R side. Vital Signs Temperature 102.7 F H 03/20/19 09:21 Pulse Rate 96 H 03/20/19 09:21 Respiratory Rate 24 H 03/20/19 09:21 Blood Pressure 125/78 03/20/19 09:21 O2 Sat by Pulse Oximetry (%) 98 03/20/19 05:13 PE: Gen: NAD, awake, alert, oriented x3 HEENT: Nc/AT, NAA, glasses wearing, MMM LUNG: CTA b/l no wheezes or rales CARD: RRR no murmurs appreciated ABD: Soft, mild tenderness RLQ, normoactive BS, nondistended, no guarding, no palpable bladder noted BACK: R CVA tenderness EXT: No edema noted, Strong pulses b/l CBC, BMP 03/19/19 18:26 03/19/19 18:26 Active Medications Acetaminophen (Tylenol -) 650 mg PO Q6H PRN PRN Reason: PAIN LEVEL 1-5 Last Admin: 03/20/19 09:28 Dose: 650 mg Aspirin (Ecotrin -) 81 mg PO DAILY [facility] Last Admin: 03/20/19 11:13 Dose: 81 mg Sodium Chloride (Normal Saline -) 1,000 mls @ 100 mls/hr IV ASDIR [facility] Last Admin: 03/20/19 09:31 Dose: 100 mls/hr Aztreonam 2 gm/ Dextrose 100 mls @ 100 mls/hr IVPB Q8H-IV [facility] Stop: 03/20/19 18:59 Last Admin: 03/20/19 11:13 Dose: 100 mls/hr Ketorolac Tromethamine (Toradol Injection -) 15 mg IVPUSH Q6H PRN PRN Reason: PAIN LEVEL 6-10 Stop: 03/25/19 00:05 Potassium Phos/Sodium Phos (Phos-Nak Packet -) 1 packet PO TID [facility] Last Admin: 03/20/19 06:18 Dose: 1 packet Tamsulosin HCl (Flomax -) 0.4 mg PO DAILY@0830 [facility] Last Admin: 03/20/19 08:29 Dose: 0.4 mg Assessment and Plan: Sepsis 2/2 to Pyelonephritis Proteinuria Hypoalbuminemia 2/2 to above Hypophosphatemia Provoked PE (2018) history --Continue Azactam considering allergies to antibiotics --Cannot use Carbapenem due to high allergen cross-reactivity percentage --Urology consult placed for 7mm obstructive nephrolithiasis at R J --Monitor Cr function --Tylenol and Ketorlac for pain control and fver --Tamsulosin 0.4mg qdaily --Pt with previous history of OCP induced PE in 2018 --Pt in peripartum period switched to ASA 81mg qdaily --Consider consultation for Heme/onc on outpatient basis for hypercoaguable workup --Hypoalbuminemia 2/2 to proteinuria noted; will need repeat UA after acute hospitalization and possible 24hr protein collection due to proteinuria --Hypophosphatemia noted with Na-K Phos packet --Repeat in PM today FEN: Fluids: NS@100cc/hr Electrolytes: as above Nutrition: regular diet PPX: DVT - SCDs GI - Not indicated Dispo: Monitor M/S; urology consultation Case discussed with Dr. Kira Silverman, DO - IM PGY-3 <Francisco Javier Silverman - Last Filed: 03/21/19 07:07> - Note Progress Note: Seen and examined; please see resident note for further discussion. Agree with their note including assessment and plan as outlined aside from as supplemented myself. Independently reviewed and verified all evans historical and PE findings as well as labs and imaging. Discussed at length with resident and consulting services. Patient's pain is controlled; she is here with repeated renal calculi with history of 2x lithotripsy and stenting with removal coming in with sepsis likely 2/2 to infectied stone; urological services being contacted. Not requiring pressors and not hypotensive and tachycardia is fluid responsive. Stable for floor. ID consulted. 10 sys ROS done and negative aside from HPI VS, labs, imaging reviewed NAD AAO resting in bed NC AT EOMI PERRLA RRR s1/2 Lungs CTAB, w/ sym exp R-flank pain noted; ND +BS CN2-12 wnl, no fnd. No asterixis. Sleepy. Normal mood, appropriate behavior No new rashes or skin breakdown noted Trachea midline without lymphadenopathy CT results reviewed EKG reviewed Type and screen, PT/INR orderd A/P: Presenting with sepsis secondary to infected renal stone with history of DVT with questionable indication for AC; she never followed up with the hematology team after giving and has still been on ASA only and thinks she may have to go back on lovenox and covnert back to NOAC. Will discuss with her OP heme and our own if needed. Probelms include: -Sepsis secondary to infected stone -Obstructive uropathy -History of nephrolithiasis -History of DVT, need to confirm provoked vs. unprokoved and heme recs; consider FVL. -Obesity (BMI 33, parliamentary counsel prior to DC) Isotonic fluids, abx. Will need procedure per urology. Monitor on floor. Can upgrade care if needed. She is Full Code <Prasad Malone - Last Filed: 03/24/19 07:20>
--- NOTE | 2019-03-20 14:38 | PN ---
Progress Note (short form) - Note Progress Note: R/O ACUTE R PYELONEPHRITIS ? MAJOR PCN/CEPHALOSPORIN ALLERGIES AWAIT C/S EMPIRIC AZTREONAM
--- NOTE | 2019-03-20 17:46 | CONS ---
INFECTIOUS DISEASE CONSULTATION DATE OF CONSULTATION: DATE OF DICTATION: 03/20/2019 HISTORY: The patient is a 34-year-old female with a history of right urethral stricture now evaluated for possible pyelonephritis. The patient has a history of right urethral stricture dating back to 2016. She was unsure of the etiology of this condition, however, did report a history of nephrolithiasis. She had undergone a ureteral stent placement and removal in 2017. She now presents with a 5-day history of worsening right flank pain associated with fever. She contacted her manager study and was prescribed clindamycin without significant improvement. She continues to complain of right flank pain. She denies any dysuria or hematuria. No fever or chills. The patient is and is currently . PAST MEDICAL HISTORY: Positive for nephrolithiasis and right urethral stricture. ALLERGIES: PENICILLIN and CEPHALOSPORIN. Patient reports throat swelling and shortness of breath as well as hives. MEDICATIONS: Include Tylenol, aspirin, aztreonam, Flomax. SOCIAL HISTORY: She lives at home with her significant other. Nonsmoker. Nondrinker. LABORATORY DATA: White count 8.0, hematocrit 38.0, platelets 300, creatinine 1.0. Urinalysis 917 white cells, 95 red cells. Cultures are pending. PHYSICAL EXAMINATION: General: She is awake and alert. She is in no acute distress. Vital Signs: Maximum temperature 102.7, blood pressure 125/78, pulse 96 regular, respirations 24 per minute. HEENT: Sclerae anicteric. Heart: Sounds S1, S2. Lungs: Clear. Abdomen: Soft. There is some mild right-sided tenderness to palpation. There is right CVA tenderness to palpation. No suprapubic tenderness. Extremities: Negative for edema. IMPRESSION: 1. Rule out acute right pyelonephritis. 2. Possible major PENICILLIN and CEPHALOSPORIN allergies. 3. History of right urethral stricture. PLAN: Await sepsis workup. Urology evaluation. IV fluid hydration. Empiric antibiotic coverage with aztreonam 2 g IV piggyback every 8 hours. We will follow. Thank you for the kind referral. OSCAR PRINCE M.D. [id number]
[2019-03-20] MEDS ORDERED: ONDANSETRON 4 MG/2 ML VIAL IVPUSH PRN (18:25)
[2019-03-21] MEDS: SODIUM CHLORIDE 1,000 ML IV SCH ×3 (01:17→23:01)
[2019-03-21] MEDS: AZTREONAM 2 GM in DEXTROSE 5%-WATER 100 ML IVPB SCH ×3 (03:20→18:40)
--- NOTE | 2019-03-21 07:09 | PN ---
Progress Note (short form) - Note Progress Note: HPI: Briefly pt here with R flank pain 2/2 to pyelonephritis and obstructive UVJ 7mm nephrolith. Pt today reports chills and fevers throughout the night. Pt without any dysuria or polyuria. Reports darker urine. Pt still has flank pain persisting on R side. Vital Signs Temperature 99.2 F 03/21/19 10:02 Pulse Rate 87 03/21/19 10:02 Respiratory Rate 20 03/21/19 10:02 Blood Pressure 125/76 03/21/19 10:02 O2 Sat by Pulse Oximetry (%) 97 03/20/19 21:00 PE: Gen: NAD, awake, alert, oriented x3 HEENT: Nc/AT, NAA, glasses wearing, MMM LUNG: CTA b/l no wheezes or rales CARD: RRR no murmurs appreciated ABD: Soft, mild tenderness RLQ, normoactive BS, nondistended, no guarding, no palpable bladder noted BACK: R CVA tenderness persists EXT: No edema noted, Strong pulses b/l CBC, BMP 03/19/19 18:26 03/19/19 18:26 Active Medications Acetaminophen (Tylenol -) 650 mg PO Q6H PRN PRN Reason: PAIN LEVEL 1-5 Last Admin: 03/21/19 07:26 Dose: 650 mg Aspirin (Ecotrin -) 81 mg PO DAILY [facility] Last Admin: 03/21/19 09:31 Dose: 81 mg Sodium Chloride (Normal Saline -) 1,000 mls @ 100 mls/hr IV ASDIR [facility] Last Admin: 03/21/19 03:22 Dose: 100 mls/hr Aztreonam 2 gm/ Dextrose 100 mls @ 100 mls/hr IVPB Q8H-IV [facility]; Protocol Last Admin: 03/21/19 09:31 Dose: 100 mls/hr Ondansetron HCl (Zofran Injection) 4 mg IVPUSH Q6H PRN PRN Reason: NAUSEA AND/OR VOMITING Last Admin: 03/20/19 19:08 Dose: 4 mg Potassium Phos/Sodium Phos (Phos-Nak Packet -) 1 packet PO TID [facility] Last Admin: 03/21/19 07:26 Dose: 1 packet Tamsulosin HCl (Flomax -) 0.4 mg PO DAILY@0830 [facility] Last Admin: 03/21/19 08:36 Dose: 0.4 mg Assessment and Plan: Sepsis 2/2 to Pyelonephritis Proteinuria Hypoalbuminemia 2/2 to above Hypophosphatemia Provoked PE (2018) history --Discussed case with urology; will need nephrostomy (R) placement --IR team aware and to discuss with radiologist --Continue Azactam considering allergies to antibiotics --Cannot use Carbapenem due to high allergen cross-reactivity percentage --Appreciated recommendations --Monitor Cr function --Tylenol and Ketorlac for pain control and fver --Tamsulosin 0.4mg qdaily --Pt with previous history of OCP induced PE in 2018 --Pt in peripartum period switched to ASA 81mg qdaily --Consider consultation for Heme/onc on outpatient basis for hypercoaguable workup --Hypoalbuminemia 2/2 to proteinuria noted; will need repeat UA after acute hospitalization and possible 24hr protein collection due to proteinuria --Hypophosphatemia noted with Na-K Phos packet --Repeat in PM today FEN: Fluids: NS@100cc/hr Electrolytes: as above Nutrition: regular diet PPX: DVT - SCDs GI - Not indicated Dispo: Monitor M/S; poss. IR nephrostomy placement Case discussed with Dr. Kira Silverman, DO - IM PGY-3 <Francisco Javier Silverman - Last Filed: 03/21/19 12:40> - Note Progress Note: Seen and examined; please see resident note for further discussion. Agree with their note including assessment and plan as outlined aside from as supplemented myself. Independently reviewed and verified all evans historical and PE findings as well as labs and imaging. Discussed at length with resident and consulting services. Pain controlled; pending procedure. VS stabilized. Has refused labs. 10 sys ROS done and negative aside from HPI VS, labs, imaging reviewed NAD AAO resting in bed NC AT EOMI PERRLA RRR s1/2 Lungs CTAB, w/ sym exp R-flank pain noted; ND +BS CN2-12 wnl, no fnd. No asterixis. Sleepy. Normal mood, appropriate behavior No new rashes or skin breakdown noted Trachea midline without lymphadenopathy CT results reviewed EKG reviewed Type and screen, PT/INR orderd A/P: Presenting with sepsis secondary to infected renal stone with history of DVT with questionable indication for AC; she never followed up with the hematology team after giving and has still been on ASA only and thinks she may have to go back on lovenox and covnert back to NOAC. Will discuss with her OP heme and our own if needed. Probelms include: -Sepsis secondary to infected stone -Obstructive uropathy -History of nephrolithiasis -History of DVT, need to confirm provoked vs. unprokoved and heme recs; consider FVL. 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 Still pending definitive procedure and culture data. Monitor on floor. Can upgrade care if needed. She is Full Code <Prasad Malone - Last Filed: 03/24/19 07:21>
[2019-03-21] MEDS: ACETAMINOPHEN 325 MG TABLET (FP) PO PRN ×2 (07:26→21:17)
[2019-03-21] MEDS: NAPH,MB-DB/K PH,MBDB POWDER PACKET PO SCH ×3 (07:26→21:17)
[2019-03-21] MEDS: TAMSULOSIN HCL 0.4 MG CAP PO SCH (08:36)
[2019-03-21] MEDS ORDERED: PT OWN MED DRAWER 7, Y5N ONE ×2 (09:08→17:44)
[2019-03-21] MEDS: ASPIRIN COATED 81 MG TABLET.EC PO SCH (09:31)
[2019-03-22] MEDS ORDERED: LACTATED RINGERS SOLUTION 1000 ML INFUS.BAG IV ONE (00:39)
[2019-03-22] MEDS ORDERED: PT OWN MED DRAWER 7, Y5N ONE ×2 (02:02→09:56)
[2019-03-22] MEDS: AZTREONAM 2 GM in DEXTROSE 5%-WATER 100 ML IVPB SCH ×3 (02:15→17:31)
[2019-03-22] MEDS: LACTATED RINGERS SOLUTION 1,000 ML IV SCH (02:15)
[2019-03-22] MEDS: NAPH,MB-DB/K PH,MBDB POWDER PACKET PO SCH ×3 (06:46→21:51)
--- NOTE | 2019-03-22 07:22 | PN ---
Progress Note (short form) - Note Progress Note: HPI: Febrile overnight without significant events. Pt was wondering what her overall plan is. Flank pain has subsided and still experiencing fevers, chills, and night sweats.l Vital Signs Temperature 98.7 F 03/22/19 13:00 Pulse Rate 67 03/22/19 13:00 Respiratory Rate 20 03/22/19 13:00 Blood Pressure 127/76 03/22/19 13:00 O2 Sat by Pulse Oximetry (%) 96 03/21/19 21:00 PE: Gen: NAD, awake, alert, oriented x3 HEENT: Nc/AT, NAA, glasses wearing, MMM LUNG: CTA b/l no wheezes or rales CARD: RRR no murmurs appreciated ABD: Soft, NT/ND, normoactive BS, no guarding, no palpable bladder noted BACK: No CVA tenderness today; nephrostomy tube in place without drainage around site EXT: No edema noted, Strong pulses b/l CBC, BMP 03/22/19 08:36 03/22/19 08:36 Microbiology 03/19/19 19:28 Urine - Urine Clean Catch Urine Culture - Preliminary Group D Strep Or Entero Coccus Lactose Fermenting Neg Bacilli 03/19/19 18:26 Blood - Peripheral Venous Blood Culture - Preliminary NO GROWTH OBTAINED AFTER 48 HOURS, INCUBATION TO CONTINUE FOR 3 DAYS. 03/19/19 18:26 Blood - Peripheral Venous Blood Culture - Preliminary NO GROWTH OBTAINED AFTER 48 HOURS, INCUBATION TO CONTINUE FOR 3 DAYS. Active Medications Acetaminophen (Tylenol -) 650 mg PO Q6H PRN PRN Reason: PAIN LEVEL 1-5 Last Admin: 03/22/19 14:34 Dose: 650 mg Aspirin (Ecotrin -) 81 mg PO DAILY [facility] Last Admin: 03/22/19 10:00 Dose: 81 mg Aztreonam 2 gm/ Dextrose 100 mls @ 100 mls/hr IVPB Q8H-IV [facility]; Protocol Last Admin: 03/22/19 17:31 Dose: 100 mls/hr Lactated Ringer's (Lactated Ringers Solution) 1,000 mls @ 75 mls/hr IV ASDIR [facility] Last Admin: 03/22/19 02:15 Dose: 75 mls/hr Ondansetron HCl (Zofran Injection) 4 mg IVPUSH Q6H PRN PRN Reason: NAUSEA AND/OR VOMITING Last Admin: 03/20/19 19:08 Dose: 4 mg Potassium Phos/Sodium Phos (Phos-Nak Packet -) 1 packet PO TID [facility] Last Admin: 03/22/19 14:29 Dose: 1 packet Tamsulosin HCl (Flomax -) 0.4 mg PO DAILY@0830 [facility] Last Admin: 03/22/19 09:00 Dose: 0.4 mg Assessment and Plan: Sepsis 2/2 to Pyelonephritis Proteinuria Hypoalbuminemia 2/2 to above Provoked PE (2018) history --Nephrostomy placed yesterday --Continue to drain --Overall fever curve is decreasing; repeat Blood and Urine cultures today --Continue Azactam q8h IVPB with notable cephalosporin and penicillin allergies (Carbapenem with high allergen cross-reactivity) --Discussed with patient reason for blood work and testing --Amenable to lab draws --Cr improving; continue to monitor --Continue Tamsulosin 0.4mg qdaily --Tylenol and Ketorlac for pain control and fever --Pt with previous history of OCP induced PE in 2018 --Pt in peripartum period switched to ASA 81mg qdaily --Factor V leiden, KANDICE pending; to f/u --Attempted to contact outpatient Warehouse Assistant, however could not reach --Proteinuria noted on original UA; will need repeat UA after acute hospitalization and possible 24hr protein collection due to proteinuria FEN: Fluids: LR@75cc/hr Electrolytes: as above Nutrition: regular diet PPX: DVT - SCDs GI - Not indicated Dispo: Monitor M/S; fever control and then possible lithotripsy Case discussed with Dr. Kira iSlverman, DO - IM PGY-3 <Francisco Javier Silverman - Last Filed: 03/22/19 18:03> - Note Progress Note: Seen and examined; please see resident note for further discussion. Agree with their note including assessment and plan as outlined aside from as supplemented myself. Independently reviewed and verified all evans historical and PE findings as well as labs and imaging. Discussed at length with resident and consulting services. Pain controlled; has been refusing labs but was febrile overnight and did remit. Repeated cultures, procedure noted. Appreciate uro input. 10 sys ROS done and negative aside from HPI VS, labs, imaging reviewed NAD AAO resting in bed NC AT EOMI PERRLA RRR s1/2 Lungs CTAB, w/ sym exp R-flank pain noted; ND +BS CN2-12 wnl, no fnd. No asterixis. Sleepy. Normal mood, appropriate behavior No new rashes or skin breakdown noted Trachea midline without lymphadenopathy CT results reviewed EKG reviewed Type and screen, PT/INR orderd A/P: Sepsis resolved; s/p nephrostomy tube draining bloody fluid. She finally let us obtain labs. Probelms include: -Sepsis secondary to infected stone -Obstructive uropathy -History of nephrolithiasis -Unprovoked DVT, no need for AC per her OP heme. Heme input noted. 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 S/p procedure with no apparent complications postprocedurally. May require further intervention per uro. Monitor. Full Code <Prasad Malone - Last Filed: 03/24/19 07:25>
[2019-03-22] MEDS: TAMSULOSIN HCL 0.4 MG CAP PO SCH (09:00)
[2019-03-22 09:13] LABS: BASO % 0.6 % (0-2.0); EOS % 1.5 % (0-4.5); HEMATOCRIT 33.8 % (32.4-45.2); HEMOGLOBIN 11.2 GM/dL (10.7-15.3); MCHC 33.3 g/dl (32.0-36.0); MEAN CELL VOLUME 81.1 fl (80-96); MEAN PLT VOLUME 7.2 fl (7.5-11.1); NEUT % 63.9 % (42.8-82.8); PLATELET COUNT 349 K/MM3 (134-434); RBC 4.17 M/mm3 (3.60-5.2); RDW 14.5 % (11.6-15.6); WHITE BLOOD COUNT 6.7 K/mm3 (4.0-10.0)
[2019-03-22 09:43] LABS: BLOOD UREA NITROGEN 6.6 mg/dL (7-18); CREATININE 0.8 mg/dL (0.55-1.3); POTASSIUM 3.9 mmol/L (3.5-5.1)
[2019-03-22] MEDS: ASPIRIN COATED 81 MG TABLET.EC PO SCH (10:00)
[2019-03-22] MEDS: ACETAMINOPHEN 325 MG TABLET (FP) PO PRN (14:34)
--- NOTE | 2019-03-22 18:45 | PN ---
Progress Note (short form) - Note Progress Note: Patient sen and examined 34 year old presents with nausea, emesis , right flank pain and pyelonephritis. Has required nephrostomy in view of obstruting stone. Prior history of lithotripsy in 2017 and history of multiple UTI's in past History of DVT LE while on control pills treated with 3-4 months of xarelto. No additional treatment thereafter . Family history with mother with possible "blood clot" and mother's sister ( patients aunt with "blood clot" ) Followed by Meat Cutter Apprentice in [facility] --? prior thrombophilia work up. Patient will get details of prior work up. To check Fe++ studies.
--- NOTE | 2019-03-22 22:14 | CONSULT ---
Consultation: HEME/ONC Service REQUESTING PROVIDER: CONSULT REQUEST: We have been asked to medically evaluate this patient for hx VTE. HISTORY OF PRESENT ILLNESS: Pt is a 34 y/o F 8 weeks w/ pmhx of R ureter stricture, Nephrolithiasis, multiple UTIs, R ureter stent placement and removal, presenting to ED complaining of R flank pain, fever, nausea and vomiting. Pt is being treated for nephrolithiasis with b/l nephrostomy tubes. Heme/Onc service was consulted because of hx VTE. On my interview, pt states she had a symptomatic R DVT, not PE last July while on OCPs. She was put on Xarelto for several months until she became at which time her Xarelto was stopped. She stated that her doctors considered lovenox, but elected not to start it. She was without medication for some weeks after which time she was started on Aspirin. After delivering her baby, she states lovenox was again discussed, but again, it was not started. At this time she is taking Aspirin. She states her mother had a DVT, she thinks, and possibly an aunt, as well. REVIEW OF SYSTEMS: CONSTITUTIONAL: Absent: fever, chills, diaphoresis, generalized weakness, malaise, loss of appetite, weight change HEENT: Absent: rhinorrhea, nasal congestion, throat pain, throat swelling, difficulty swallowing, mouth swelling, ear pain, eye pain, visual changes CARDIOVASCULAR: Absent: chest pain, syncope, palpitations, irregular heart rate, lightheadedness , peripheral edema RESPIRATORY: Absent: cough, shortness of breath, dyspnea with exertion, orthopnea, wheezing, stridor, hemoptysis GASTROINTESTINAL: abdominal pain Absent: , abdominal distension, nausea, vomiting, diarrhea, constipation, melena , hematochezia GENITOURINARY: Absent: dysuria, frequency, urgency, hesitancy, hematuria, flank pain, genital pain MUSCULOSKELETAL: back pain Absent: myalgia, arthralgia, joint swelling, , neck pain SKIN: Absent: rash, itching, pallor HEMATOLOGIC/IMMUNOLOGIC: Absent: easy bleeding, easy bruising, lymphadenopathy, frequent infections ENDOCRINE: Absent: unexplained weight gain, unexplained weight loss, heat intolerance, cold intolerance NEUROLOGIC: Absent: headache, focal weakness or paresthesias, dizziness, unsteady gait, seizure, mental status changes, bladder or bowel incontinence PSYCHIATRIC: Absent: anxiety, depression, suicidal or homicidal ideation, hallucinations. PHYSICAL EXAMINATION Vital Signs - 24 hr 03/21/19 03/22/19 03/22/19 22:00 01:19 05:00 Temperature 100.8 F H 99.5 F 99.3 F Pulse Rate 102 H 76 66 Respiratory 20 20 20 Rate Blood Pressure 129/89 111/59 L 125/82 O2 Sat by Pulse Oximetry (%) 03/22/19 03/22/19 03/22/19 09:00 13:00 18:00 Temperature 98.2 F 98.7 F 99.1 F Pulse Rate 84 67 71 Respiratory 15 20 20 Rate Blood Pressure 122/76 127/76 131/88 O2 Sat by Pulse 98 Oximetry (%) Gen: AAOx3, NAD HEENT: PERRL, EOMI, moist Neck: supple, no jvd Cardio: rrr, normal s1s2, no mrg Pulm: cta b/l Abd: soft, mild ttp, R nephrostomy draining serosang fluid Ext: equal size, no erythema, no tenderness, Sadler/Homman sign negative Laboratory Results - last 24 hr 03/22/19 03/22/19 08:36 08:36 WBC 6.7 RBC 4.17 Hgb 11.2 Hct 33.8 MCV 81.1 MCH 27.0 MCHC 33.3 RDW 14.5 Plt Count 349 MPV 7.2 L Absolute Neuts (auto) 4.3 Neutrophils % 63.9 D Lymphocytes % 23.0 D Monocytes % 11.0 H Eosinophils % 1.5 D Basophils % 0.6 Nucleated RBC % 0 Sodium 142 Potassium 3.9 Chloride 112 H Carbon Dioxide 24 Anion Gap 7 L BUN 6.6 L Creatinine 0.8 Est GFR (CKD-EPI)AfAm 110.70 Est GFR (CKD-EPI)NonAf 95.52 Random Glucose 98 Calcium 9.0 Active Medications Generic Name Dose Route Start Last Admin Trade Name Freq PRN Reason Stop Dose Admin Acetaminophen 650 mg 03/20/19 00:08 03/22/19 14:34 Tylenol - PO 650 mg Q6H PRN Administration PAIN LEVEL 1-5 Aspirin 81 mg 03/20/19 10:00 03/22/19 10:00 Ecotrin - PO 81 mg DAILY [facility] Administration Aztreonam 2 gm/ Dextrose 100 mls @ 100 mls/hr 03/20/19 18:00 03/22/19 17:31 IVPB 100 mls/hr Q8H-IV [facility] Administration Protocol Lactated Ringer's 1,000 mls @ 75 mls/hr 03/22/19 01:15 03/22/19 02:15 Lactated Ringers Solution IV 75 mls/hr ASDIR [facility] Administration Ondansetron HCl 4 mg 03/20/19 18:25 03/20/19 19:08 Zofran Injection IVPUSH 4 mg Q6H PRN Administration NAUSEA AND/OR VOMITING Potassium Phos/Sodium Phos 1 packet 03/20/19 06:00 03/22/19 14:29 Phos-Nak Packet - PO 1 packet TID [facility] Administration Tamsulosin HCl 0.4 mg 03/20/19 08:30 03/22/19 09:00 Flomax - PO 0.4 mg DAILY@0830 [facility] Administration ASSESSMENT/PLAN: Pt is a 34 y/o F 8 weeks w/ pmhx of DVT, R ureter stricture, Nephrolithiasis, multiple UTIs, R ureter stent placement and removal, presenting to ED complaining of R flank pain, fever, nausea and vomiting. Pt is being treated for nephrolithiasis with b/l nephrostomy tubes. Heme/Onc was called for recommendations regarding AC. Hx provoked DVT -Is following with a research test engine operator in [place] -Has relatives with possible clots. Loents hypercoaguability workup as an outpatient -Pt to request records if prior workup has been done Dispo: We will continue to follow the patient. Thank you for this consultative opportunity. Visit type - Emergency Visit Emergency Visit: No - New Patient This patient is new to me today: Yes Date on this admission: 03/22/19 - Critical Care Critical Care patient: No ATTENDING PHYSICIAN STATEMENT I saw and evaluated the patient. I reviewed the resident's note and discussed the case with the resident. I agree with the resident's findings and plan as documented. SUBJECTIVE: OBJECTIVE: ASSESSMENT AND PLAN:
--- NOTE | 2019-03-22 23:27 | CONS ---
DATE OF CONSULTATION: 03/22/2019 HISTORY OF PRESENT ILLNESS: This is a 34-year-old female who enters with fever, right flank pain, nausea, vomiting, found to have pyelonephritis. SOCIAL HISTORY: The patient is not , is a 4, para 3, Ab 1 female. She is 8 weeks . She has a history of a lower extremity DVT while on control pills in September of 2017. In April of 2018 she got and delivered normal vaginal delivery 2017. She received 3-4 months of Xarelto therapy. She had an uneventful vaginal delivery. Patient is a nonsmoker, nondrinker, no illicit drugs. She works in law enforcement. She denies industrial exposures or intoxicants. FAMILY HISTORY: Includes a mother with questionable history of blood clot, mother's sister, i.e. patient's aunt, with blood clot. PAST HISTORY: Includes the aforementioned DVT, lithotripsy in the past and multiple urinary tract infections. No history of hypertension, diabetes, hypercholesterolemia, hepatitis, thyroid disease, gout, history of cholecystectomy in 2013. Lithotripsy was in 2016. REVIEW OF SYSTEMS: Frontal headaches recently. No diplopia, no epistaxis, no dysphagia, no chest pain, nausea, vomiting, flank pain, currently now status post nephrostomy. CURRENT PHYSICAL EXAMINATION: Vital Signs: Blood pressure 131/88, pulse 71, temperature 99.1, respiratory rate 20. HEENT: DORA, EOM intact. Oropharynx unremarkable. Chest: Decreased breath sounds, poor inspiratory effort. Abdomen: Mildly distended status post status post right nephrostomy. Extremities: No significant lower extremity edema. LABORATORY: WBC 6.4, hematocrit 38 and 33.8, platelets are 149,000, 64 polycytes, 23 lymphocytes, 11 monocytes. Chemistries: 142 sodium, potassium 3.9, chloride 112, CO2 of 24, creatinine 0.8, magnesium 2.0, bilirubin 0.6, AST 12, ALT 17, alkaline phosphatase 73, protein 6.7, albumin 3.0. PTH 21, phosphorus 2.3. IMPRESSION: A 34-year-old who presents with pyelonephritis. Prior history of DVT while on control pills. Of significance is mother may have had a blood clot, and mother's aunt had a blood clot such that patient probably deserved thrombophilia workup. She was treated with 3-4 months of Xarelto post DVT in 2018 in July. Will check on her status. GIUSEPPE CORCORAN M.D. JAY JAY/[id number]
[2019-03-23] MEDS ORDERED: PT OWN MED DRAWER 7, Y5N ONE ×2 (00:54→11:57)
[2019-03-23] MEDS: LACTATED RINGERS SOLUTION 1,000 ML IV SCH (01:57)
[2019-03-23] MEDS: AZTREONAM 2 GM in DEXTROSE 5%-WATER 100 ML IVPB SCH ×3 (01:57→19:03)
[2019-03-23] MEDS: NAPH,MB-DB/K PH,MBDB POWDER PACKET PO SCH (06:03)
[2019-03-23 08:37] LABS: BASO % 0.7 % (0-2.0); HEMATOCRIT 33.4 % (32.4-45.2); HEMOGLOBIN 10.9 GM/dL (10.7-15.3); LYMPH % 23.7 % (8-40); MCH 26.5 pg (25.7-33.7); MCHC 32.7 g/dl (32.0-36.0); MEAN CELL VOLUME 81.2 fl (80-96); MEAN PLT VOLUME 7.1 fl (7.5-11.1); MONO % 7.8 % (3.8-10.2); NEUT % 65.8 % (42.8-82.8); PLATELET COUNT 446 K/MM3 (134-434); RBC 4.11 M/mm3 (3.60-5.2); RDW 14.6 % (11.6-15.6); WHITE BLOOD COUNT 7.5 K/mm3 (4.0-10.0)
--- NOTE | 2019-03-23 08:44 | PN ---
Progress Note (short form) - Note Progress Note: HPI: Afebrile overnight. Pain improved. No acute events to note PE: Gen: NAD, awake, alert, oriented x3 HEENT: Nc/AT, NAA, MMM LUNG: CTA b/l no wheezes or rales CARD: RRR no murmurs appreciated ABD: Soft, NT/ND, normoactive BS, no guarding BACK: No CVA tenderness; nephrostomy tube in place without drainage around site EXT: No edema noted, Strong pulses b/l CBC, BMP 03/23/19 08:05 03/23/19 08:05 Microbiology 03/19/19 18:26 Blood - Peripheral Venous Blood Culture - Preliminary NO GROWTH OBTAINED AFTER 96 HOURS, INCUBATION TO CONTINUE FOR 1 DAYS. 03/19/19 18:26 Blood - Peripheral Venous Blood Culture - Preliminary NO GROWTH OBTAINED AFTER 96 HOURS, INCUBATION TO CONTINUE FOR 1 DAYS. 03/19/19 19:28 Urine - Urine Clean Catch Urine Culture - Final Streptococcus Bovis Lactose Fermenting Neg Bacilli 03/21/19 09:33 Urine - Urine Nephrostomy Tube Right Urine Culture - Final NO GROWTH OBTAINED 03/22/19 08:36 Blood - Peripheral Venous Blood Culture - Preliminary NO GROWTH OBTAINED AFTER 24 HOURS, INCUBATION TO CONTINUE FOR 4 DAYS. 03/22/19 07:15 Blood - Peripheral Venous Blood Culture - Preliminary NO GROWTH OBTAINED AFTER 24 HOURS, INCUBATION TO CONTINUE FOR 4 DAYS. Active Medications Acetaminophen (Tylenol -) 650 mg PO Q6H PRN PRN Reason: PAIN LEVEL 1-5 Last Admin: 03/22/19 14:34 Dose: 650 mg Diphenhydramine HCl (Benadryl -) 25 mg PO ONCE ONE Stop: 03/24/19 08:01 Aztreonam 2 gm/ Dextrose 100 mls @ 100 mls/hr IVPB Q8H-IV [facility]; Protocol Last Admin: 03/23/19 19:03 Dose: 100 mls/hr Ondansetron HCl (Zofran Injection) 4 mg IVPUSH Q6H PRN PRN Reason: NAUSEA AND/OR VOMITING Last Admin: 03/20/19 19:08 Dose: 4 mg Prednisone (Deltasone -) 50 mg PO ONCE ONE Stop: 03/24/19 02:01 Prednisone (Deltasone -) 50 mg PO ONCE ONE Stop: 03/24/19 08:01 Tamsulosin HCl (Flomax -) 0.4 mg PO DAILY@0830 [facility] Last Admin: 03/23/19 11:54 Dose: 0.4 mg Assessment and Plan: Sepsis 2/2 to Pyelonephritis Proteinuria Hypoalbuminemia 2/2 to above Provoked PE (2018) history --Afebrile overnight, urine cultures are cleared --Nephrostagram to be done tomorrow with internalization of stent --Nephrostomy tube with continued drainage --Due to patient allergy to contrast will have to pre-medicate prior to procedure --Prednisone 50mg to be given at 8pm (13hr prior), 2am (Fri; 7hr prior), 8am (Fri; 1hr prior) --To receive Benadryl 25mg PO 1hr prior to surgery as well --Continue Azactam q8h IVPB to continue --Awaiting culture sensitivities from original UCx --Continue Tamsulosin 0.4mg qdaily --Tylenol and Ketorlac for pain control/fever --Pt with previous history of OCP induced PE in 2018 --Pt in peripartum period switched to ASA 81mg qdaily --Factor V leiden, KANDICE pending; to f/u --Discussed with outpatient heme: can discontinue ASA currently --Proteinuria noted on original UA; will need repeat UA after acute hospitalization and possible 24hr protein collection due to proteinuria FEN: Fluids: PO Electrolytes: as above Nutrition: Regular diet PPX: DVT - SCDs GI - Not indicated Dispo: Monitor M/S; nephrostogram and stent Case discussed with Dr. Malone and Dr. Toro Silverman, DO - IM PGY-3 <Francisco Javier Silverman - Last Filed: 03/23/19 22:01> - Note Progress Note: Seen and examined; please see resident note for further discussion. Agree with their note including assessment and plan as outlined aside from as supplemented myself. Independently reviewed and verified all evans historical and PE findings as well as labs and imaging. Discussed at length with resident and consulting services. Pain controlled; going for nephrostogram and stent placement with nephrology tomorrow. S. Bovis >100k CFU and likely contaminant GNB noted due to CFU count. Stable symptoms. Continue abx per ID; pansensativity noted of the bovis. 10 sys ROS done and negative aside from HPI VS, labs, imaging reviewed NAD AAO resting in bed NC AT EOMI PERRLA RRR s1/2 Lungs CTAB, w/ sym exp R-flank pain noted; ND +BS CN2-12 wnl, no fnd. No asterixis. Sleepy. Normal mood, appropriate behavior No new rashes or skin breakdown noted Trachea midline without lymphadenopathy CT results reviewed EKG reviewed Type and screen, PT/INR orderd A/P: Sepsis resolved; s/p nephrostomy tube draining bloody fluid with stent placement and nephrostogram tomorrow with urology. Probelms include: -Sepsis secondary to infected stone -Obstructive uropathy -History of nephrolithiasis -Unprovoked DVT, no need for AC per her OP heme. Heme input noted. 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 Full Code <Prasad Malone - Last Filed: 03/24/19 07:28>
[2019-03-23 09:11] LABS: BLOOD UREA NITROGEN 8.8 mg/dL (7-18); CALCIUM 8.8 mg/dL (8.5-10.1); CREATININE 0.7 mg/dL (0.55-1.3); PHOSPHOROUS 4.6 mg/dL (2.5-4.9); POTASSIUM 4.2 mmol/L (3.5-5.1)
[2019-03-23 09:15] LABS: INR 1.08 (0.83-1.09); PROTHROMBIN TIME (PATIENT) 12.8 SEC (9.7-13.0)
[2019-03-23] MEDS: ASPIRIN COATED 81 MG TABLET.EC PO SCH (11:53)
[2019-03-23] MEDS: TAMSULOSIN HCL 0.4 MG CAP PO SCH (11:54)
--- NOTE | 2019-03-23 17:16 | CON.GU ---
Consult - History of Present Illness History of Present Illness: 34 yo female known to me with h/o stones, h/o Rt UPJ obstruction and h/o rt distal ureteral striscture, Now admitted with rt pyelonephritis and poss obstructing RDU stone. Clinically improving with IV abx and Rt NT placement - Past Medical History ...LMP: 03/19/17 ...LMP Comment: 8 weeks ...: No - Alcohol/Substance Use Hx Alcohol Use: No - Smoking History Smoking history: Never smoked Have you smoked in the past 12 months: No Aproximately how many cigarettes per day: 0 Home Medications - Allergies Allergies/Adverse Reactions: Allergies Allergy/AdvReac Type Severity Reaction Status Date / Time Cephalosporins Allergy Verified 03/19/19 17:51 Penicillins Allergy Verified 03/19/19 17:51 iv contrast Allergy Rash Uncoded 03/23/19 16:17 - Home Medications Home Medications: Ambulatory Orders Aspirin [ASA -] 325 mg PO BID 03/20/19 Vitamin Tablet 1 tab PO DAILY 03/20/19 Physical Exam- Vital Signs: Vital Signs Temperature 99.2 F 03/23/19 13:00 Pulse Rate 87 03/23/19 13:00 Respiratory Rate 20 03/23/19 13:00 Blood Pressure 105/73 03/23/19 13:00 O2 Sat by Pulse Oximetry (%) 97 03/22/19 21:00 Renal/: Yes: CVA Tenderness - Right Labs: CBC, BMP 03/23/19 08:05 03/23/19 08:05 Imaging - Results Cat Scan: Image Reviewed Problem List - Problems (1) Obstructive uropathy Assessment/Plan: plan for rt nephrostgram and antegrade stent placement tomporrow. will be prepped in light of allergy history to dye Code(s): N13.9 - OBSTRUCTIVE AND REFLUX UROPATHY, UNSPECIFIED
--- NOTE | 2019-03-23 18:07 | PN ---
Progress Note, Physician History of Present Illness: REPORTS LESS R FLANK PAIN NO C/O DYSURIA NO F/C TEMPS DOWN AFEBRILE WBC WNL TOLERATING AZTREONAM BC (-) - Current Medication List Current Medications: Active Medications Acetaminophen (Tylenol -) 650 mg PO Q6H PRN PRN Reason: PAIN LEVEL 1-5 Last Admin: 03/22/19 14:34 Dose: 650 mg Diphenhydramine HCl (Benadryl -) 25 mg PO ONCE ONE Stop: 03/24/19 08:01 Aztreonam 2 gm/ Dextrose 100 mls @ 100 mls/hr IVPB Q8H-IV CONNER; Protocol Last Admin: 03/23/19 12:00 Dose: 100 mls/hr Ondansetron HCl (Zofran Injection) 4 mg IVPUSH Q6H PRN PRN Reason: NAUSEA AND/OR VOMITING Last Admin: 03/20/19 19:08 Dose: 4 mg Prednisone (Deltasone -) 50 mg PO ONCE ONE Stop: 03/23/19 20:01 Prednisone (Deltasone -) 50 mg PO ONCE ONE Stop: 03/24/19 02:01 Prednisone (Deltasone -) 50 mg PO ONCE ONE Stop: 03/24/19 08:01 Tamsulosin HCl (Flomax -) 0.4 mg PO DAILY@0830 CONNER Last Admin: 03/23/19 11:54 Dose: 0.4 mg - Objective Vital Signs: Vital Signs Temperature 99.2 F 03/23/19 13:00 Pulse Rate 87 03/23/19 13:00 Respiratory Rate 20 03/23/19 13:00 Blood Pressure 105/73 03/23/19 13:00 O2 Sat by Pulse Oximetry (%) 97 03/22/19 21:00 Constitutional: Yes: No Distress Eyes: Yes: Conjunctiva Clear Cardiovascular: Yes: Regular Rate and Rhythm, S1, S2 Respiratory: Yes: CTA Bilaterally Gastrointestinal: Yes: Normal Bowel Sounds, Soft. No: Tenderness Genitourinary: Yes: CVA Tenderness - Right Edema: No Labs: CBC, BMP 03/23/19 08:05 03/23/19 08:05 INR, PTT INR 1.08 (0.83-1.09) 03/23/19 08:05 Assessment/Plan OBSTRUCTIVE UROPATHY R/O PYELONEPHRITIS FEVER/ LEUKOCYTOSIS IMPROVED PCN/CEPHALOSPORIN ALLERGIES FOR URETERAL STENT CONTINUE AZTREONAM
[2019-03-23] MEDS ORDERED: predniSONE 20 MG TABLET (UD) PO ONE (20:00)
[2019-03-24] MEDS ORDERED: PT OWN MED DRAWER 7, Y5N ONE ×3 (01:16→18:42)
[2019-03-24] MEDS ORDERED: predniSONE 20 MG TABLET (UD) PO ONE ×2 (02:00→08:00)
[2019-03-24] MEDS: AZTREONAM 2 GM in DEXTROSE 5%-WATER 100 ML IVPB SCH ×3 (02:00→18:44)
[2019-03-24 07:43] LABS: HEMATOCRIT 36.7 % (32.4-45.2); HEMOGLOBIN 12.2 GM/dL (10.7-15.3); MCH 26.8 pg (25.7-33.7); MCHC 33.2 g/dl (32.0-36.0); MEAN CELL VOLUME 80.8 fl (80-96); MEAN PLT VOLUME 6.9 fl (7.5-11.1); PLATELET COUNT 593 K/MM3 (134-434); RBC 4.54 M/mm3 (3.60-5.2); RDW 14.7 % (11.6-15.6); WHITE BLOOD COUNT 8.6 K/mm3 (4.0-10.0)
[2019-03-24] MEDS ORDERED: diphenhydrAMINE HCL 25 MG CAPSULE (FP) PO ONE (08:00)
[2019-03-24 08:02] LABS: INR 1.08 (0.83-1.09); PROTHROMBIN TIME (PATIENT) 12.7 SEC (9.7-13.0)
[2019-03-24 08:12] LABS: BLOOD UREA NITROGEN 11.8 mg/dL (7-18); CALCIUM 9.7 mg/dL (8.5-10.1); CREATININE 0.7 mg/dL (0.55-1.3); POTASSIUM 4.6 mmol/L (3.5-5.1)
[2019-03-24] MEDS: TAMSULOSIN HCL 0.4 MG CAP PO SCH (08:12)
--- NOTE | 2019-03-24 08:47 | PN ---
Progress Note (short form) - Note Progress Note: HPI: Afebrile overnight. Pt premedicated overnight for upcoming nephrostogram/ internalization of stent PE: Gen: NAD, awake, alert, oriented x3 HEENT: Nc/AT, NAA, MMM LUNG: CTA b/l no wheezes or rales CARD: RRR no murmurs appreciated ABD: Soft, NT/ND, normoactive BS, no guarding BACK: No CVA tenderness; nephrostomy tube in place without drainage around site EXT: No edema noted, Strong pulses b/l CBC, BMP 03/24/19 07:26 03/24/19 07:26 Microbiology 03/22/19 07:15 Blood - Peripheral Venous Blood Culture - Preliminary NO GROWTH OBTAINED AFTER 48 HOURS, INCUBATION TO CONTINUE FOR 3 DAYS. 03/19/19 18:26 Blood - Peripheral Venous Blood Culture - Preliminary NO GROWTH OBTAINED AFTER 96 HOURS, INCUBATION TO CONTINUE FOR 1 DAYS. 03/19/19 18:26 Blood - Peripheral Venous Blood Culture - Preliminary NO GROWTH OBTAINED AFTER 96 HOURS, INCUBATION TO CONTINUE FOR 1 DAYS. 03/19/19 19:28 Urine - Urine Clean Catch Urine Culture - Final Streptococcus Bovis Lactose Fermenting Neg Bacilli 03/21/19 09:33 Urine - Urine Nephrostomy Tube Right Urine Culture - Final NO GROWTH OBTAINED 03/22/19 08:36 Blood - Peripheral Venous Blood Culture - Preliminary NO GROWTH OBTAINED AFTER 24 HOURS, INCUBATION TO CONTINUE FOR 4 DAYS. Active Medications Acetaminophen (Tylenol -) 650 mg PO Q6H PRN PRN Reason: PAIN LEVEL 1-5 Last Admin: 03/22/19 14:34 Dose: 650 mg Aztreonam 2 gm/ Dextrose 100 mls @ 100 mls/hr IVPB Q8H-IV CONNER; Protocol Last Admin: 03/24/19 02:00 Dose: 100 mls/hr Ondansetron HCl (Zofran Injection) 4 mg IVPUSH Q6H PRN PRN Reason: NAUSEA AND/OR VOMITING Last Admin: 03/20/19 19:08 Dose: 4 mg Tamsulosin HCl (Flomax -) 0.4 mg PO DAILY@0830 CONNER Last Admin: 03/24/19 08:12 Dose: 0.4 mg Assessment and Plan: Sepsis 2/2 to Pyelonephritis Proteinuria Hypoalbuminemia 2/2 to above Provoked PE (2018) history --Afebrile overnight, urine cultures are cleared --Nephrostagram to be done today with internalization of stent --Nephrostomy tube with continued drainage --Due to patient allergy to contrast will have to pre-medicate prior to procedure --Prednisone 50mg to be given at 8pm (13hr prior), 2am (Fri; 7hr prior), 8am (Fri; 1hr prior) --To receive Benadryl 25mg PO 1hr prior to surgery as well --Continue Azactam q8h IVPB to continue --Sensitivies noted; sensitive to Levaquin for PO transition --Continue Tamsulosin 0.4mg qdaily --Tylenol and Ketorlac for pain control/fever --Pt with previous history of OCP induced PE in 2018 --Pt in peripartum period switched to ASA 81mg qdaily --Factor V leiden, KANDICE pending; to f/u --Discussed with outpatient heme: can discontinue ASA --Proteinuria noted on original UA; will need repeat UA after acute hospitalization and possible 24hr protein collection due to proteinuria FEN: Fluids: PO Electrolytes: as above Nutrition: Regular diet PPX: DVT - SCDs GI - Not indicated Dispo: Monitor M/S; nephrostogram and stent Case discussed with Dr. Kira Silverman, DO - IM PGY-3 <Francisco Javier Silverman - Last Filed: 03/24/19 19:07> - Note Progress Note: Seen and examined; please see resident note for further discussion. Agree with their note including assessment and plan as outlined aside from as supplemented myself. Independently reviewed and verified all evans historical and PE findings as well as labs and imaging. Discussed at length with resident and consulting services. Pain controlled; going for nephrostogram and stent placement with nephrology tomorrow. S. Bovis >100k CFU and likely contaminant GNB noted due to CFU count. Stable symptoms. Continue abx per ID; pansensativity noted of the bovis. 10 sys ROS done and negative aside from HPI VS, labs, imaging reviewed NAD AAO resting in bed NC AT EOMI PERRLA RRR s1/2 Lungs CTAB, w/ sym exp R-flank pain noted; ND +BS CN2-12 wnl, no fnd. No asterixis. Sleepy. Normal mood, appropriate behavior No new rashes or skin breakdown noted Trachea midline without lymphadenopathy CT results reviewed EKG reviewed Type and screen, PT/INR orderd A/P: Continues to improve; curious about DC-indicnated it is dependent on urological plans as well as conversion to a PO agent and further discussion with ID Probelms include: -Sepsis secondary to urinary source; S. Bovis with pansensativity but is and is noted to have cephalosporin and pennicillin allergy. -Obstructive uropathy due to stenosis, s/p nephrostomy with planned further intervention per Dr. Engel. -History of nephrolithiasis -Unprovoked DVT, no need for AC per her OP heme. Heme input noted. -Obesity (BMI 33, residential substance abuse counselor prior to DC) Followup cultures, abx per ID. Full Code <Prasad Malone - Last Filed: 03/25/19 18:06>
[2019-03-24] MEDS: ACETAMINOPHEN 325 MG TABLET (FP) PO PRN (12:01)
[2019-03-24] MEDS ORDERED: BISACODYL 10 MG SUPP.RECT PR ONE (21:22)
[2019-03-24] MEDS ORDERED: POLYETHYLENE GLYCOL 3350 119 GM BTL PO ONE (21:22)
[2019-03-24] MEDS ORDERED: SENNOSIDES 8.6MG TABLET (FP) PO ONE (21:23)
--- NOTE | 2019-03-24 21:25 | PN ---
Progress Note, Physician History of Present Illness: S/P URETERAL STENT REPORTS LESS R FLANK PAIN NO C/O DYSURIA NO F/C TEMPS DOWN AFEBRILE WBC WNL TOLERATING AZTREONAM BC (-) - Current Medication List Current Medications: Active Medications Acetaminophen (Tylenol -) 650 mg PO Q6H PRN PRN Reason: PAIN LEVEL 1-5 Last Admin: 03/24/19 12:01 Dose: 650 mg Aztreonam 2 gm/ Dextrose 100 mls @ 100 mls/hr IVPB Q8H-IV CONNER; Protocol Last Admin: 03/24/19 18:44 Dose: 100 mls/hr Ondansetron HCl (Zofran Injection) 4 mg IVPUSH Q6H PRN PRN Reason: NAUSEA AND/OR VOMITING Last Admin: 03/20/19 19:08 Dose: 4 mg Tamsulosin HCl (Flomax -) 0.4 mg PO DAILY@0830 CONNER Last Admin: 03/24/19 08:12 Dose: 0.4 mg - Objective Vital Signs: Vital Signs Temperature 98.1 F 03/24/19 18:08 Pulse Rate 72 03/24/19 18:08 Respiratory Rate 18 03/24/19 18:08 Blood Pressure 115/62 03/24/19 18:08 O2 Sat by Pulse Oximetry (%) 100 03/24/19 11:12 Constitutional: Yes: No Distress Cardiovascular: Yes: Regular Rate and Rhythm, S1, S2 Respiratory: Yes: CTA Bilaterally Gastrointestinal: Yes: Normal Bowel Sounds, Soft Labs: CBC, BMP 03/24/19 07:26 03/24/19 07:26 INR, PTT INR 1.08 (0.83-1.09) 03/24/19 07:26 Assessment/Plan OBSTRUCTIVE UROPATHY S/P STENT R/O PYELONEPHRITIS FEVER/ LEUKOCYTOSIS IMPROVED PCN/CEPHALOSPORIN ALLERGIES CONTINUE AZTREONAM SUBSTITUTE LEVAQUIN 500MG PO QD X 7D PT INSTRUCTED NOT TO BREAST FEED WHILE ON LEVAQUIN
[2019-03-25] MEDS ORDERED: PT OWN MED DRAWER 7, Y5N ONE ×3 (01:18→18:28)
[2019-03-25] MEDS: AZTREONAM 2 GM in DEXTROSE 5%-WATER 100 ML IVPB SCH ×3 (01:37→19:35)
[2019-03-25] MEDS: TAMSULOSIN HCL 0.4 MG CAP PO SCH (08:49)
--- NOTE | 2019-03-25 10:16 | DS ---
Physical Exam: SUBJECTIVE: Patient seen and examined today she is comfortable and had stent placed yesterday no pain haS NO FEVER SAMARA Pt is a 34 y/o F 8 weeks w/ pmhx of R ureter stricture, Nephrolithiasis, multiple UTIs, R ureter stent placement and removal, presenting to ED complaining of R flank pain, fever, nausea and vomiting beginning on . Pt rates pain as 9/10. Pt reports after symptoms onset on she called her OBGYN, Dr. Gong, which advised the pt to take Clindamycin. Today, symptoms worsened and pt went to an urgent care center who advised patient to go to ED for evaluation. Pt denies chest pain, diarrhea, or urinary changes. Pt does have a chronic history of constipation and also endorses decreased appetite/ nausea/ vomiting/ and feeling febrile since t= . Nothing improved or worsened symptoms. We asked the pt to explain why she had been prescribed Pradaxa. The patient stated she did not thin that she ever took that medication but did say that in 2018, she had a blood clot for which she was started on Xarelto. Pt was on OCP at the time. When she became the Xarelto was discontinued and Aspirin was started. After giving , pt was suppose to start on Levonox but she has not yet been back to her hemotologist, Dr. Sow, so she continued on Aspirin. OBJECTIVE: Vital Signs Period Temp Pulse Resp BP Sys/Philippe Pulse Ox Last 24 Hr 98.0 F-99.1 F 68-104 16-20 104-157/62-103 96-100 PHYSICAL EXAM GENERAL: The patient is awake, alert, and fully oriented, in no acute distress. HEAD: Normal with no signs of trauma. EYES: PERRL, extraocular movements intact, sclera anicteric, conjunctiva clear. ENT: Ears normal, nares patent, oropharynx clear without exudates, moist mucous membranes. NECK: Trachea midline, full range of motion, supple. LUNGS: Breath sounds equal, clear to auscultation bilaterally, no wheezes, no crackles, no accessory muscle use. HEART: Regular rate and rhythm, S1, S2 without murmur, rub or gallop. ABDOMEN: Soft, nontender, nondistended, normoactive bowel sounds, no guarding, no rebound, no hepatosplenomegaly, no masses. EXTREMITIES: 2+ pulses, warm, well-perfused, no edema. NEUROLOGICAL: Cranial nerves II through XII grossly intact. Normal speech, gait not observed. PSYCH: Normal mood, normal affect. SKIN: Warm, dry, normal turgor, no rashes or lesions noted. LABS HOSPITAL COURSE: she was start on abx and she has stent in place she is afibrile and OBSTRUCTIVE UROPATHY S/P STENT R/O PYELONEPHRITIS FEVER/ LEUKOCYTOSIS IMPROVED PCN/CEPHALOSPORIN ALLERGIES CONTINUE AZTREONAM in Hospital and SUBSTITUTE LEVAQUIN 500MG PO QD X 7D PT INSTRUCTED NOT TO BREAST FEED WHILE ON LEVAQUIN' she is stable to go home Date of Admission:03/19/19 Date of Discharge: 03/25/19 Minutes to complete discharge: 30 Discharge Summary Problems reviewed: Yes Reason For Visit: URINARY TRACT INFECTION, OBSTRUCTIVE UROPATHY Current Active Problems Obstructive uropathy (Acute) UTI (urinary tract infection) (Acute) Condition: Good - Instructions Diet, Activity, Other Instructions: regular diet but no breast milk feeding while taking levaquin daily for 7 days and and then start 2 days after she finishes the levaquin. Referrals: Josafat Gong [Primary Care Provider] - Francisco Javier Engel MD [Staff Physician] - Disposition: HOME - Home Medications Comprehensive Discharge Medication List: Ambulatory Orders Aspirin [ASA -] 325 mg PO BID 03/20/19 Vitamin Tablet 1 tab PO DAILY 03/20/19 Levofloxacin [Levaquin] 500 mg PO DAILY #7 tablet 03/25/19 This patient is new to me today: Yes Date on this admission: 03/25/19 Emergency Visit: Yes ED Registration Date: 03/19/19 Care time: The patient presented to the Emergency Department on the above date and was hospitalized for further evaluation of their emergent condition. Critical Care patient: No - Discharge Referral Referred to [facility] Med P.C.: No
[2019-03-25] MEDS ORDERED: MAGNESIUM HYDROX 2400MG/30ML ORAL SUSPENSION 30 ML CUP PO PRN ×2 (11:38→12:21)
[2019-03-25] MEDS ORDERED: MAGNESIUM HYDROX 2400MG/30ML ORAL SUSPENSION 30 ML CUP PO ONE (11:38)
--- NOTE | 2019-03-25 11:44 | PN ---
Progress Note (short form) - Note Progress Note: she is better and has no symptoms no fever or chils no distress had stent placed and still have nephrostomy tube in place Vital Signs Period Temp Pulse Resp BP Sys/Philippe Pulse Ox Last 24 Hr 98.0 F-99.1 F 68-104 16-20 104-138/62-96 96-97 Gen: NAD, awake, alert, oriented x3 HEENT: Nc/AT, NAA, MMM LUNG: CTA b/l no wheezes or rales CARD: RRR no murmurs appreciated ABD: Soft, NT/ND, normoactive BS, no guarding BACK: No CVA tenderness; nephrostomy tube in place without drainage around site EXT: No edema noted, Strong pulses b/l CBC, BMP 03/24/19 07:26 03/24/19 07:26 Assessment and Plan: Sepsis 2/2 to Pyelonephritis --Afebrile overnight, urine cultures are cleared she has stent placed and will have nephrostomy tube removed if she voids id f/u noted --Continue Azactam q8h IVPB to continue --Sensitivies noted; sensitive to Levaquin for PO transition --Continue Tamsulosin 0.4mg qdaily --Tylenol and Ketorlac for pain control/fever Visit type - Emergency Visit Emergency Visit: Yes ED Registration Date: 03/19/19 Care time: The patient presented to the Emergency Department on the above date and was hospitalized for further evaluation of their emergent condition. - New Patient This patient is new to me today: Yes Date on this admission: 03/25/19 - Critical Care Critical Care patient: No - Discharge Referral Referred to [facility] No
[2019-03-25] MEDS: ACETAMINOPHEN 325 MG TABLET (FP) PO PRN (22:30)
[2019-03-26] MEDS ORDERED: PT OWN MED DRAWER 7, Y5N ONE ×3 (02:16→17:32)
[2019-03-26] MEDS: AZTREONAM 2 GM in DEXTROSE 5%-WATER 100 ML IVPB SCH ×3 (02:45→18:55)
[2019-03-26] MEDS: TAMSULOSIN HCL 0.4 MG CAP PO SCH (08:48)
--- NOTE | 2019-03-26 11:30 | PN ---
Progress Note (short form) - Note Progress Note: she is better and has no symptoms no fever or chils no distress had stent placed and still have nephrostomy tube in place . She has no difficulty voiding urine and has good bowel movement. No back pain no redness at the site of catheter. Vital Signs Period Temp Pulse Resp BP Sys/Philippe Pulse Ox Last 24 Hr 97.6 F-99.1 F 68-88 18-20 115-152/63-84 97 Gen: NAD, awake, alert, oriented x3 HEENT: Nc/AT, NAA, MMM LUNG: CTA b/l no wheezes or rales CARD: RRR no murmurs appreciated ABD: Soft, NT/ND, normoactive BS, no guarding BACK: No CVA tenderness; nephrostomy tube in place without drainage around site EXT: No edema noted, Strong pulses b/l CBC, BMP 03/24/19 07:26 03/24/19 07:26 Assessment and Plan: Sepsis 2/2 to Pyelonephritis --Afebrile overnight, urine cultures are cleared she has stent placed and will have nephrostomy tube removed if she voids id f/u noted --Continue Azactam q8h IVPB to continue --Sensitivies noted; sensitive to Levaquin for PO transition --Continue Tamsulosin 0.4mg qdaily --Tylenol and Ketorlac for pain control/fever Order placed with the interventional radiology for removal of the nephrostomy tube. Visit type - Emergency Visit Emergency Visit: Yes ED Registration Date: 03/19/19 Care time: The patient presented to the Emergency Department on the above date and was hospitalized for further evaluation of their emergent condition. - New Patient This patient is new to me today: No - Critical Care Critical Care patient: No - Discharge Referral Referred to [facility] Med P.C.: No
[2019-03-27] MEDS: AZTREONAM 2 GM in DEXTROSE 5%-WATER 100 ML IVPB SCH ×2 (02:54→09:38)
[2019-03-27] MEDS: TAMSULOSIN HCL 0.4 MG CAP PO SCH (08:37)
[2019-03-27 15:14] VITALS: BP 132/77; PULSE 81; TEMP 98.6
--- NOTE | 2019-03-27 16:10 | DS ---
Physical Exam: SUBJECTIVE: Patient seen and examined at bedside. Had nephrostomy tube removed. Vitals WNL; hemodynamically stable. No drainage at site. Able to ambulate freely. OBJECTIVE: Vital Signs Period Temp Pulse Resp BP Sys/Philippe Pulse Ox Last 24 Hr 98.6 F-99.0 F 66-81 18-18 113-132/68-78 96-98 PHYSICAL EXAM GENERAL: The patient is awake, alert, and fully oriented, in no acute distress. HEAD: Normal with no signs of trauma. EYES: PERRL, extraocular movements intact, sclera anicteric, conjunctiva clear. ENT: Ears normal, nares patent, oropharynx clear without exudates, moist mucous membranes. NECK: Trachea midline, full range of motion, supple. LUNGS: Breath sounds equal, clear to auscultation bilaterally, no wheezes, no crackles, no accessory muscle use. HEART: Regular rate and rhythm, S1, S2 without murmur, rub or gallop. ABDOMEN: Soft, nontender, nondistended, obese. +R flank - with gauze c/d/i s/p nephrostomy tube removal. EXTREMITIES: 2+ pulses, warm, well-perfused, no edema. NEUROLOGICAL: Cranial nerves II through XII grossly intact. Normal speech, gait observed- WNL. PSYCH: Normal mood, normal affect. SKIN: Warm, dry LABS 03/19/19 03/19/19 03/23/19 18:26 19:28 08:05 WBC 8.0 Hgb 12.5 Hct 38.0 Plt Count 446 H D PT with INR Random Glucose Ur Leukocyte Esterase 2+ H Urine WBC (Auto) 917 Urine RBC (Auto) 95.1 Urine Casts (Auto) 12 03/24/19 03/24/19 03/24/19 07:26 07:26 07:26 WBC 8.6 Hgb 12.2 Hct 36.7 Plt Count 593 H D PT with INR 12.70 INR 1.08 Sodium 139 Potassium 4.6 Chloride 107 Carbon Dioxide 25 Anion Gap 7 L BUN 11.8 Creatinine 0.7 Est GFR (CKD-EPI)AfAm 130.10 Est GFR (CKD-EPI)NonAf 112.25 Random Glucose 137 H Ur Leukocyte Esterase Urine Casts (Auto) Microbiology 03/22/19 08:36 Blood - Peripheral Venous Blood Culture - Final NO GROWTH AFTER 5 DAYS INCUBATION 03/22/19 07:15 Blood - Peripheral Venous Blood Culture - Final NO GROWTH AFTER 5 DAYS INCUBATION 03/21/19 09:33 Urine - Urine Nephrostomy Tube Right Urine Culture - Final NO GROWTH OBTAINED 03/19/19 19:28 Urine - Urine Clean Catch Urine Culture - Final Streptococcus Bovis Lactose Fermenting Neg Bacilli 03/19/19 18:26 Blood - Peripheral Venous Blood Culture - Final NO GROWTH AFTER 5 DAYS INCUBATION 03/19/19 18:26 Blood - Peripheral Venous Blood Culture - Final NO GROWTH AFTER 5 DAYS INCUBATION Imaging 03/19 CXR: without acute abnormality 03/19 CTAP: R kidney shows mild atrophy, perirenal stranding, moderately severe hydronephrosis, dilated renal pelvis increased compared to previous study. there is also hydroureter which extends to a possible but not definitive 4.4mm distal R ureteral stone. multiple other calcifications are seen in the pelvis which probably are phleboliths including some which were seen previously. moderate severe stool retention. 03/21 Distal R ureteral calculus w / hydronephrosis: Percutaneous renal drainage procedure pt tolerated well 03/24 ureteral stent placement: R 8.5x 24cm double J stent placed 03/27: removal nephrostomy, nephrosogram: d/w IR, ok for D/c HOSPITAL COURSE: Date of Admission:03/19/19 Date of Discharge: 03/27/19 Admit diagnosis: sepsis 2/2 pyelonephritis Pt is a 34 y/o F 8 weeks w/ pmhx of R ureter stricture, Nephrolithiasis, multiple UTIs, R ureter stent placement and removal, presenting to ED complaining of R flank pain, fever, nausea and vomiting. Was managed for sepsis 2/2 pyelonephritis. During hospitalization, pt was found to have perinephric stranding, moderately severe hydronephrosis, dilated renal pelvis increased compared to previous study. there is also hydroureter which extends to a possible but not definitive 4.4mm distal R ureteral stone. She underwent R ureteral stent placement with urology. Pt also had a nephrostomy tube placed, which was subsequently removed prior to discharge. She is to follow with urology, continue on flomax and levaquin PO x 7 days. She is advised that she should not breastfeed while on levaquin and expressed verbal understanding of this. All questions answered. 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 Minutes to complete discharge: 48 Discharge Summary Problems reviewed: Yes Reason For Visit: URINARY TRACT INFECTION, OBSTRUCTIVE UROPATHY Current Active Problems S/P ureteral stent placement (Acute) UTI (urinary tract infection) (Acute) Condition: Good - Instructions Diet, Activity, Other Instructions: You were in the hospital because you had a kidney infection. This improved when you were in the hospital, you were treated with IV antibiotics. You were seen by urology and had a stent placed, and a kidney tube (nephrostomy tube) placed to help with urinating. This was removed by interventional radiology before your discharge. Medications You are being sent home on the antibiotic Levaquin 500mg . Please take 1 pill a day starting tomorrow for 7 days. Do not breast feed while on this medication. You may only start to breast feed again 2 days after you are finished with the antibiotic. Please also discuss this with your PCP (primary care doctor). Please also continue to take Flomax 1 pill daily to aid in urination. You may continue your home medications. You will need to discuss your blood thinner from your past history of leg clots with your primary care doctor. Follow up Please follow up with your primary care doctor in 3-5 days after discharge. Your EKG will be monitored while you take the antibiotic. You will also need to discuss the blood thinner for your old leg clots with your doctor. Please also see a urologist, Dr. Engel in 1 week to discuss your stay and further plan as well If you develop chest pain or shortness of breath, please go to the emergency room. Referrals: Francisco Javier Engel MD [Staff Physician] - 1 Week Josafat Gong [Primary Care Provider] - 03/30/19 Disposition: HOME - Home Medications Comprehensive Discharge Medication List: Ambulatory Orders Aspirin [ASA -] 325 mg PO BID 03/20/19 Vitamin Tablet 1 tab PO DAILY 03/20/19 Levofloxacin [Levaquin] 500 mg PO DAILY #7 tablet 03/25/19 Tamsulosin HCl [Flomax] 0.4 mg PO DAILY #30 cap.er.24h 03/27/19 This patient is new to me today: Yes Date on this admission: 03/27/19 Emergency Visit: No Critical Care patient: No - Discharge Referral Referred to [facility] Med P.C.: No ATTENDING PHYSICIAN STATEMENT I saw and evaluated the patient. I reviewed the resident's note and discussed the case with the resident. I agree with the resident's findings and plan as documented. SUBJECTIVE: OBJECTIVE: ASSESSMENT AND PLAN:
== END 2019-03-27 16:30 | disposition home or self-care (01) | DRG 872 ==
LOC: JER 17:44 → JERBED 22:30 → J5S 03-20 04:02
PROVIDERS: ADMIT Internal Medicine; ATTEND Internal Medicine
PROC: 0T9330Z Drainage of Right Kidney Pelvis with Drainage Device, Percutaneous Approach (ICD-10-PCS; principal; 2019-03-21)
PROC: 0T25X0Z Change Drainage Device in Kidney, External Approach (ICD-10-PCS; 2019-03-24)
PROC: BT11ZZZ Fluoroscopy of Right Kidney (ICD-10-PCS; 2019-03-24)
DX: A40.8 Other streptococcal sepsis (principal); N13.6 Pyonephrosis; E87.1 Hypo-osmolality and hyponatremia; E88.09 Other disorders of plasma-protein metabolism, not elsewhere classified; E83.39 Other disorders of phosphorus metabolism; D72.829 Elevated white blood cell count, unspecified; E66.8 Other obesity; Z68.33 Body mass index [BMI] 33.0-33.9, adult; Z88.0 Allergy status to penicillin; Z86.718 Personal history of other venous thrombosis and embolism
CPT/HCPCS: 36415; 50389; 50431; 50432; 50693; 71045-TC-FY; 74176-TC; 74425-TC-FY; 76000-TC-FY; 76098-TC-FY; 76998-TC; 80048; 80053; 81003; 81241; 82803; 83605; 83735; 83970; 84100; 84703; 85025; 85027; 85610; 85730; 86038; 86431; 87040; 87070; 87075; 87077; 87086; 87186; 87205; 87899; 93005; 93010; 99284-25; A4358; C1729; C1769; C1887; C1894; J0131; J7030

== ENCOUNTER 2020-10-28 01:23 | Emergency (ER) | payer BC, OTHER ==
[2020-10-28 01:33] VITALS: BP 130/85; PULSE 87; TEMP 98.3; BMI 35.4
[2020-10-28] MEDS ORDERED: GLYCERIN 1 RECTAL SUPPOSITORY, ADULT PR ONE (01:46)
[2020-10-28] MEDS ORDERED: LACTULOSE 20 GM/30 ML UDC (FOR ORAL USE ONLY) PO ONE (01:47)
[2020-10-28] MEDS ORDERED: POLYETHYLENE GLYCOL (HEALTHYLAX) 3350 17 GM PACKET ONE (01:51)
[2020-10-28] MEDS ORDERED: LACTULOSE 20 GM/30 ML UDC (FOR ORAL USE ONLY) ONE (01:51)
[2020-10-28] MEDS ORDERED: POLYETHYLENE GLYCOL (HEALTHYLAX) 3350 17 GM PACKET PO SCH ×2 (02:18→10:00)
[2020-10-28 02:40] LABS: BASO % 1.4 % (0-2.0); HEMATOCRIT 46.2 % (32.4-45.2); HEMOGLOBIN 15.3 GM/dL (10.7-15.3); MCH 28.4 pg (25.7-33.7); MEAN CELL VOLUME 85.9 fl (80-96); MONO % 5.1 % (3.8-10.2); NEUT % 81.5 % (42.8-82.8); PLATELET COUNT 329 10^3/uL (134-434); RBC 5.38 M/mm3 (3.60-5.2); RDW 15.3 % (11.6-15.6); WHITE BLOOD COUNT 11.6 K/mm3 (4.0-10.0)
[2020-10-28 02:47] LABS: ALBUMIN 3.1 g/dl (3.4-5.0); CALCIUM 9.4 mg/dL (8.5-10.1); MAGNESIUM 2.5 mg/dL (1.8-2.4)
[2020-10-28 02:48] LABS: BLOOD UREA NITROGEN 17.7 mg/dL (7-18)
[2020-10-28 02:51] LABS: CREATININE 0.8 mg/dL (0.55-1.3); INR 0.87 (0.83-1.09); PROTHROMBIN TIME (PATIENT) 10.6 SEC (9.7-13.0)
[2020-10-28 02:52] LABS: EPI CELLS >36 /uL (0-25.1); HYALINE CASTS 6 /uL (0-3.1); PH,URINE 6.5 (5.0-8.0); URINE APPEARANCE CLOUDY; URINE BACTERIA 1920 /uL (0-1359); URINE BILIRUBIN NEGATIVE (NEGATIVE); URINE COLOR DK YELLOW; URINE GLUCOSE (UA) NEGATIVE (NEGATIVE); URINE KETONE TRACE (NEGATIVE); URINE LEUK ESTERASE 3+ (NEGATIVE); URINE NITRITE NEGATIVE (NEGATIVE); URINE PROTEIN 2+ (NEGATIVE); URINE RBC 1173 /uL (0-23.9); URINE WBC 1394 /uL (0-25.8)
[2020-10-28 02:52] LABS: BILIRUBIN,TOTAL 0.3 mg/dL (0.2-1)
[2020-10-28 02:54] LABS: ACTIVATED PTT 28.9 SECONDS (25.2-36.5)
[2020-10-28] MEDS ORDERED: ACETAMINOPHEN 325 MG TABLET (FP) PO ONE (04:07)
[2020-10-28] MEDS ORDERED: SULFAMETHOXAZOLE/TRIMETHOPRIM 800MG/160MG D.S. TABLET PO ONE (04:12)
[2020-10-28] MEDS ORDERED: ACETAMINOPHEN 325 MG TABLET (FP) ONE (04:14)
[2020-10-28] MEDS ORDERED: SULFAMETHOXAZOLE/TRIMETHOPRIM 800MG/160MG D.S. TABLET ONE (04:14)
[2020-10-28] MEDS ORDERED: NITROFURANTOIN MACROCRYSTAL 50 MG CAPSULE (FP) PO SCH (04:15)
== END 2020-10-28 04:35 | disposition home or self-care (01) ==
LOC: JER 01:23
DX: N30.01 Acute cystitis with hematuria (principal)
CPT/HCPCS: 36415; 80053; 81003; 83735; 85025; 85610; 85730; 87086; 87186; 93005; 93010; 99284-25